=== PATIENT | male | born 1990 | race American Indian/Alaskan Native ===

== ENCOUNTER 2017-08-17 21:42 | Emergency (ER) | payer BC, MEDICAID, OTHER ==
[2017-08-17 21:51] VITALS: BMI 27.1
--- NOTE | 2017-08-17 22:34 | ED PDOC ---
Arrival/HPI - General Time Seen by Provider: 08/17/17 22:10 Historian: Patient - History of Present Illness Narrative History of Present Illness (Text): 08/17/17 22:34 Ren Louis is a 26 year old male, whose past medical history includes HIV ( undetectable viral load) on HAART medication and cholecystectomy, who presents to the Emergency department complaining of abdominal pain. Patient states he has been experiencing upper abdominal pain radiating to his back with associated decreased appetite for the past few days. Patient denies any fever, chills, chest pain, shortness of breath, diarrhea, urinary symptoms, neck pain, headache, dizziness, or any other complaints. Time/Duration: Other (few days) Symptom Onset: Gradual Symptom Course: Unchanged Activities at Onset: Light Context: Home Past Medical History - Provider Review Nursing Documentation Reviewed: Yes - Infectious Disease Hx of Infectious Diseases: None - Tetanus Immunization Tetanus Immunization: Up to Date - Pulmonary Hx Asthma: Yes - Hematological/Oncological Hx HIV: Yes (Diagnosed in 2011) - Psychiatric Hx Substance Use: Yes - Surgical History Hx Cholecystectomy: Yes - Anesthesia Hx Anesthesia: Yes Hx Anesthesia Reactions: No Hx Malignant Hyperthermia: No - Suicidal Assessment Feels Threatened In Home Enviroment: No Family/Social History - Physician Review Nursing Documentation Reviewed: Yes Family/Social History: Unknown Family HX Smoking Status: Former Smoker Hx Alcohol Use: Yes Hx Substance Use: Yes Substance used: marijuana Allergies/Home Meds Allergies/Adverse Reactions: Allergies Penicillins Allergy (Verified 01/25/17 10:35) ANAPHYLAXIS Review of Systems - Physician Review All systems were reviewed & negative as marked: Yes - Review of Systems Constitutional: Normal. absent: Fevers Eyes: Normal ENT: Normal Respiratory: Normal. absent: SOB, Cough Cardiovascular: Normal. absent: Chest Pain Gastrointestinal: Abdominal Pain, Appetite Changes (+decreased appetite). absent: Diarrhea, Nausea, Vomiting Genitourinary Male: Normal. absent: Dysuria, Frequency, Hematuria, Urinary Output Changes Skin: Normal. absent: Rash Neurological: Normal. absent: Headache, Dizziness Endocrine: Normal Hemo/Lymphatic: Normal Psychiatric: Normal Physical Exam Vital Signs Reviewed: Yes Vital Signs Temp Pulse Resp BP Pulse Ox 08/18/17 03:02 98.1 F 87 18 99 08/17/17 22:37 98.4 F 83 18 151/92 H 99 Temperature: Afebrile Blood Pressure: Normal Pulse: Regular Respiratory Rate: Normal Appearance: Positive for: Well-Appearing, Non-Toxic, Comfortable Pain Distress: None Mental Status: Positive for: Alert and Oriented X 3 - Systems Exam Head: Present: Atraumatic, Normocephalic Pupils: Present: PERRL Extroacular Muscles: Present: EOMI Conjunctiva: Present: Normal Mouth: Present: Moist Mucous Membranes Neck: Present: Normal Range of Motion Respiratory/Chest: Present: Clear to Auscultation, Good Air Exchange. No: Respiratory Distress, Accessory Muscle Use Cardiovascular: Present: Regular Rate and Rhythm, Normal S1, S2. No: Murmurs Abdomen: Present: Tenderness (Mild LUQ tenderness), Normal Bowel Sounds. No: Distention, Peritoneal Signs Back: Present: Normal Inspection Upper Extremity: Present: Normal Inspection. No: Cyanosis, Edema Lower Extremity: Present: Normal Inspection. No: Edema Neurological: Present: GCS=15, CN II-XII Intact, Speech Normal Skin: Present: Warm, Dry, Normal Color. No: Rashes Psychiatric: Present: Alert, Oriented x 3, Normal Insight, Normal Concentration Medical Decision Making ED Course and Treatment: 08/17/17 22:34 Impression: 26 year old male complaining of upper abdominal pain radiating to his back for past few days with decreased appetite. Differential Diagnosis included but are not limited to: pancreatitis vs choledocholithiasis vs. gastritis vs. abdominal pain Plan: -- CT Abdomen and Pelvis with IV contrast -- EKG -- Labs, cardiac enzymes, amylase, lipase, blood cultures -- Urinalysis, urine cultures -- IV fluids -- Zofran -- Protonix -- Reassess and disposition Prior Visits: Notes and results from previous visits were reviewed. On 03/25/2017, pt was seen in the Emergency department for left hand/forearm numbness and tinlging. Pt was d/c home. Progress Notes: reviewed EKG, NSR at [address]-segment elevations or depressions, no T-wave inversions, normal intervals. 08/18/17 02:04 Reviewed radiology, CT Abdomen and Pelvis shows: 1. Probable mild enteritis. Clinical correlation is needed. 2. Incidental/non-acute findings are described above. Re-evaluation Time: 03:00 Reassessment Condition: Re-examined, Improved - Lab Interpretations Microbiology Results: Microbiology Results 08/17/17 23:18 Blood-Venous Blood Culture - Preliminary NO GROWTH AFTER 48 HOURS 08/17/17 23:00 Blood-Venous Blood Culture - Preliminary NO GROWTH AFTER 48 HOURS 08/18/17 02:10 Urine,Clean Catch Urine Culture - Final No Growth (<1,000 CFU/ML) Lab Results: 08/17/17 22:40 08/17/17 23:10 Lab Results 08/18/17 02:10: Urine Color Yellow, Urine Appearance Clear, Urine pH 6.5, Ur Specific Roe 1.010, Urine Protein Trace H, Urine Glucose (UA) Negative, Urine Ketones Negative, Urine Blood Negative, Urine Nitrate Negative, Urine Bilirubin Negative, Urine Urobilinogen 0.2, Ur Leukocyte Esterase Negative, Urine RBC 0 - 2, Urine WBC 0 - 2, Ur Epithelial Cells 0 - 2 08/17/17 23:10: Sodium 142, Potassium 3.7, Chloride 104, Carbon Dioxide 27, Anion Gap 15, BUN 7, Creatinine 0.9, Est GFR ( Amer) > 60, Est GFR (Non- Af Amer) > 60, Random Glucose 88, Calcium 9.0, Total Bilirubin 0.6, AST 27, ALT 25, Alkaline Phosphatase 72, Lactate Dehydrogenase 447, Total Creatine Kinase 246 H, CK-MB (CK-2) 1.2, CK-MB (CK-2) % Cancelled, Troponin I < 0.01, Total Protein 7.1, Albumin 4.2, Globulin 2.9, Albumin/Globulin Ratio 1.4, Amylase 84, Lipase 33 08/17/17 23:10: PT 11.0, INR 1.02, APTT 29.5 08/17/17 22:40: WBC 6.5 D, RBC 4.90, Hgb 13.8 L, Hct 39.1 L, MCV 79.8 L, MCH 28.2, MCHC 35.3, RDW 13.1, Plt Count 202, MPV 10.8, Gran % 69.9 H, Lymph % (Auto ) 18.7 L, [place] % (Auto) 9.4 H, Eos % (Auto) 1.7, Baso % (Auto) 0.3, Gran # 4.52 , Lymph # 1.2, [place] # 0.6, Eos # 0.1, Baso # 0.02 I have reviewed the lab results: Yes - RAD Interpretation Narrative RAD Interpretations (Text): CT Abdomen and Pelvis shows: Lower thorax: No acute findings. ABDOMEN: Liver: Few too small to characterize lesions. Gallbladder and bile ducts: Cholecystectomy. No ductal dilation. Pancreas: No ductal dilation. No mass. Spleen: No splenomegaly. Adrenals: No mass. Kidneys and ureters: No mass. No hydronephrosis. Stomach and bowel: Underdistention of stomach, limiting evaluation. Apparent mild mural thickening of several duodenal, jejunal loops. No associated inflammatory stranding. No obstruction. Appendix: No definite findings to suggest acute appendicitis. PELVIS: Bladder: Unremarkable. Reproductive: Unremarkable as visualized. ABDOMEN and PELVIS: Intraperitoneal space: Trace free fluid within pelvis. No free air. Bones/joints: No acute fracture. Soft tissues: Unremarkable. Vasculature: Unremarkable. No aneurysm. Lymph nodes: No pathologically enlarged lymph nodes. IMPRESSION: 1. Probable mild enteritis. Clinical correlation is needed. 2. Incidental/non-acute findings are described above. Radiology Orders: 08/17/17 22:42 ABD & PELVIS IV CONTRAST ONLY [CT] [facility] Medical Assistant: Radiologist - EKG Interpretation Interpreted by ED Physician: Yes Type: 12 lead EKG - Medication Orders Current Medication Orders: Discontinued Medications Pantoprazole Sodium 40 mg/ (Sodium Chloride) 100 mls @ 400 mls/hr IV STAT STA Stop: 08/17/17 22:55 Last Admin: 08/17/17 23:50 Dose: 400 mls/hr eMAR Start Stop Document 08/17/17 23:50 EQ (Rec: 08/17/17 23:50 EQ [id number]) Intravenous Solution Start Date 08/17/17 Start Time 23:50 Sodium Chloride (Sodium Chloride 0.9%) 1,000 mls @ 100 mls/hr IV .Q10H STA Stop: 08/18/17 08:40 Last Admin: 08/17/17 23:50 Dose: 100 mls/hr eMAR Start Stop Document 08/17/17 23:50 EQ (Rec: 08/17/17 23:50 EQ [id number]) Intravenous Solution Start Date 08/17/17 Start Time 23:50 Metronidazole (Flagyl) 500 mg PO STAT STA PRN Reason: Protocol Stop: 08/18/17 02:35 Last Admin: 08/18/17 02:59 Dose: 500 mg Ondansetron HCl (Zofran Inj) 4 mg IVP STAT STA Stop: 08/17/17 22:42 Last Admin: 08/17/17 23:50 Dose: 4 mg IVP Administration Document 08/17/17 23:50 EQ (Rec: 08/17/17 23:50 EQ [id number]) Charges for Administration # of IVP Administrations 1 - Scribe Statement The provider has reviewed the documentation as recorded by the Alessiaiblasha Thorpe Provider Scribe Attestation: All medical record entries made by the Scribe were at my direction and personally dictated by me. I have reviewed the chart and agree that the record accurately reflects my personal performance of the history, physical exam, medical decision making, and the department course for this patient. I have also personally directed, reviewed, and agree with the discharge instructions and disposition.' Disposition/Present on Arrival - Present on Arrival Any Indicators Present on Arrival: No History of DVT/PE: No History of Uncontrolled Diabetes: No Urinary Catheter: No History Surgical Site Infection Following: None - Disposition Have Diagnosis and Disposition been Completed?: Yes Diagnosis: Gastroenteritis Disposition: HOME/ ROUTINE Disposition Time: 03:05 Condition: GOOD Discharge Instructions (ExitCare): Gastroenteritis (ED) Prescriptions: Metronidazole [Flagyl] 500 mg PO TID #15 tab Forms: [x+1] (Faroese)
[2017-08-17 22:37] VITALS: BP 151/92; RESP 18; O2SAT 99
[2017-08-17] MEDS ORDERED: Pantoprazole 40 MG in Sodium Chloride 0.9% 100 ML IV STA (22:41)
[2017-08-17] MEDS ORDERED: Sodium Chloride 0.9% 1,000 ML IV STA (22:41)
[2017-08-17 23:43] LABS: BASO # 0.02 K/mm3 (0.0-2.0); BASO % 0.3 % (0.0-3.0); EOS # 0.1 (0.0-0.7); EOS % 1.7 % (1.5-5.0); GRAN # 4.52 (1.4-6.5); GRAN % 69.9 % (50.0-68.0); HEMATOCRIT 39.1 % (42.0-52.0); LYMPH # 1.2 (1.2-3.4); LYMPH % 18.7 % (22.0-35.0); MEAN CELL VOLUME 79.8 fl (80.0-105.0); MEAN CORPUSCULAR HEMOGLOBIN 28.2 pg (25.0-35.0); MEAN CORPUSCULAR HGB CONC 35.3 g/dl (31.0-37.0); MEAN PLATELET VOLUME 10.8 fl (7.0-11.0); MONO # 0.6 (0.1-0.6); MONO % 9.4 % (1.0-6.0); RED CELL DISTRIBUTION WIDTH 13.1 % (11.5-14.5); WHITE BLOOD COUNT 6.5 10^3/ul (4.5-11.0)
[2017-08-17 23:52] LABS: INR 1.02 (0.93-1.08); PARTIAL THROMBOPLASTIN TIME 29.5 Seconds (23.7-30.8)
[2017-08-18] LABS: ALB/GLOB RATIO 1.4 (1.1-1.8); ALKALINE PHOSPHATASE 72 U/L (38-126); ALT/SGPT 25 U/L (7-56); AMYLASE 84 U/L (35-125); AST/SGOT 27 U/L (17-59); BILIRUBIN,TOTAL 0.6 mg/dL (0.2-1.3); BLOOD UREA NITROGEN 7 mg/dL (7-21); CARBON DIOXIDE 27 mmol/L (21-33); CHLORIDE 104 mmol/L (98-107); GFR AFRICAN-AMERICAN > 60; GLUCOSE,RANDOM 88 mg/dL (70-110); LIPASE 33 U/L (23-300); POTASSIUM 3.7 mmol/L (3.6-5.0); SODIUM 142 mmol/L (132-148); TOTAL PROTEIN 7.1 g/dL (5.8-8.3)
[2017-08-18] MEDS ORDERED: Iohexol 350 MG/100 ML VIAL ONE (00:21)
[2017-08-18 00:30] LABS: TROPONIN I < 0.01 ng/mL
--- NOTE | 2017-08-18 01:47 | CT ---
EXAM: CT Abdomen and Pelvis With Intravenous Contrast CLINICAL HISTORY: 26 years old, male; Pain; Abdominal pain; Additional info: Abd pain TECHNIQUE: Axial computed tomography images of the abdomen and pelvis with intravenous contrast. All CT scans at this facility use one or more dose reduction techniques, viz.: automated exposure control; ma/kV adjustment per patient size (including targeted exams where dose is matched to indication; i.e. head); or iterative reconstruction technique. Coronal and sagittal reformatted images were created and reviewed. CONTRAST: 96 mL of OMNI 350 administered intravenously. COMPARISON: CT - ABD PELVIS IV CONTRAST ONLY 10/02/2016 7:45:50 PM FINDINGS: Lower thorax: No acute findings. ABDOMEN: Liver: Few too small to characterize lesions. Gallbladder and bile ducts: Cholecystectomy. No ductal dilation. Pancreas: No ductal dilation. No mass. Spleen: No splenomegaly. Adrenals: No mass. Kidneys and ureters: No mass. No hydronephrosis. Stomach and bowel: Underdistention of stomach, limiting evaluation. Apparent mild mural thickening of several duodenal, jejunal loops. No associated inflammatory stranding. No obstruction. Appendix: No definite findings to suggest acute appendicitis. PELVIS: Bladder: Unremarkable. Reproductive: Unremarkable as visualized. ABDOMEN and PELVIS: Intraperitoneal space: Trace free fluid within pelvis. No free air. Bones/joints: No acute fracture. Soft tissues: Unremarkable. Vasculature: Unremarkable. No aneurysm. Lymph nodes: No pathologically enlarged lymph nodes. IMPRESSION: 1. Probable mild enteritis. Clinical correlation is needed. 2. Incidental/non-acute findings are described above.
[2017-08-18 02:30] LABS: PH,URINE 6.5 (4.7-8.0); URINE BILIRUBIN NEGATIVE (NEGATIVE); URINE BLOOD NEGATIVE (NEGATIVE); URINE GLUCOSE (UA) NEGATIVE (NEGATIVE); URINE KETONE NEGATIVE (NEGATIVE); URINE LEUKOCYTE ESTERASE NEGATIVE Leu/uL (NEGATIVE); URINE PROTEIN TRACE mg/dL (<30 mg/dL); URINE UROBILINOGEN 0.2 E.U./dL (<1 E.U./dL)
[2017-08-18 02:50] LABS: URINE APPEARANCE CLEAR (CLEAR); URINE COLOR YELLOW (YELLOW)
[2017-08-18 02:54] LABS: URINE EPITHELIAL CELLS 0 - 2 /hpf (0-5); URINE RBC 0 - 2 /hpf (0-2); URINE WBC 0 - 2 /hpf (0-6)
[2017-08-18 03:02] VITALS: PULSE 87; TEMP 98.1
--- NOTE | 2017-08-18 09:07 | CARD ---
APPROVED REPORT EKG Measurement Heart [id number] <Conclusion> Normal sinus rhythm Normal ECG No change
== END 2017-08-18 03:03 | disposition home or self-care (01) ==
LOC: ED 21:42
DX: K52.9 Noninfective gastroenteritis and colitis, unspecified (principal); Z90.49 Acquired absence of other specified parts of digestive tract
CPT/HCPCS: 74177; 80053; 81001; 82150; 82550; 82553; 83615; 83690; 84484; 85025; 85610; 85730; 87040; 87086; 93005; 96374; 99283; C9113; J2405; J7040; Q9967

== ENCOUNTER 2017-10-10 21:00 | Emergency (ER) | payer OTHER ==
[2017-10-10 21:00] VITALS: BMI 27.1
[2017-10-10 21:08] VITALS: TEMP 97.5
--- NOTE | 2017-10-10 21:25 | ED PDOC ---
Arrival/HPI <Humza Sosa - Last Filed: 10/10/17 23:17> - General Historian: Patient <Andrea Reardon - Last Filed: 10/10/17 23:33> - General Chief Complaint: Shortness Of Breath Time Seen by Provider: 10/10/17 21:17 - History of Present Illness Narrative History of Present Illness (Text): 10/10/17 21:17 27 year old male, pmh including HIV/asthma, admits drug abuse, penicillin allergy, complaining of shortness of breath for the past 2-3 days. Pt. stated that his chest feels tight, no coughing but feels the air is difficulty to get in and out, no night sweat, last HIV viral load was undetectable about 8 months ago but doesn't know his CD4 counts. Pt. has no recent traveling, no palpitation, no rash, no change in vision, admits smoking marijuana and crystalmeth no other medical or psychological complaints, no other medical or psychological complaints. (Andrea Reardon) Past Medical History - Provider Review Nursing Documentation Reviewed: Yes - Infectious Disease Hx of Infectious Diseases: None - Tetanus Immunization Tetanus Immunization: Up to Date - Reproductive Currently : Yes - Pulmonary Hx Asthma: Yes - Hematological/Oncological Hx HIV: Yes (Diagnosed in 2011) - Psychiatric Hx Depression: No Hx Substance Use: Yes - Surgical History Hx Cholecystectomy: Yes - Anesthesia Hx Anesthesia: Yes Hx Anesthesia Reactions: No Hx Malignant Hyperthermia: No - Suicidal Assessment Feels Threatened In Home Enviroment: No <Andrea Reardon - Last Filed: 10/10/17 23:33> Family/Social History - Physician Review Nursing Documentation Reviewed: Yes Family/Social History: Unknown Family HX Smoking Status: Former Smoker Hx Alcohol Use: Yes Hx Substance Use: Yes Substance used: marijuana <Andrea Reardon - Last Filed: 10/10/17 23:33> Allergies/Home Meds <Humza Sosa - Last Filed: 10/10/17 23:17> <Andrea Reardon - Last Filed: 10/10/17 23:33> Allergies/Adverse Reactions: Allergies Penicillins Allergy (Verified 01/25/17 10:35) ANAPHYLAXIS Review of Systems - Review of Systems Constitutional: absent: Fatigue, Fevers Eyes: absent: Vision Changes ENT: absent: Hearing Changes Respiratory: SOB. absent: Cough, Sputum, Wheezing Cardiovascular: absent: Chest Pain Gastrointestinal: absent: Abdominal Pain, Nausea, Vomiting Musculoskeletal: absent: Arthralgias, Back Pain, Myalgias Skin: absent: Rash, Pruritis Psychiatric: absent: Anxiety, Depression, Suicidal Ideation <Andrea Reardon - Last Filed: 10/10/17 23:33> Physical Exam Vital Signs Reviewed: Yes Temperature: Afebrile Blood Pressure: Hypertensive Pulse: Tachycardic Respiratory Rate: Normal Appearance: Positive for: Well-Appearing, Non-Toxic, Comfortable Pain Distress: None Mental Status: Positive for: Alert and Oriented X 3 - Systems Exam Head: Present: Atraumatic, Normocephalic Pupils: Present: PERRL Extroacular Muscles: Present: EOMI Conjunctiva: Present: Normal Ears: Present: NORMAL TM, Normal Canal. No: Erythema Mouth: Present: Moist Mucous Membranes Neck: Present: Normal Range of Motion Respiratory/Chest: Present: Clear to Auscultation, Good Air Exchange, Decreased Breath Sounds (bilaterally). No: Respiratory Distress, Accessory Muscle Use, Wheezes, Rales, Retracting, Rhonchi, Tachypneic, Tender to Palpation Cardiovascular: Present: Regular Rate and Rhythm, Normal S1, S2. No: Murmurs Abdomen: Present: Normal Bowel Sounds. No: Tenderness, Distention, Peritoneal Signs, Rebound, Guarding Back: Present: Normal Inspection Upper Extremity: Present: Normal Inspection. No: Cyanosis, Edema Lower Extremity: Present: Normal Inspection. No: Edema Neurological: Present: GCS=15, CN II-XII Intact, Speech Normal Skin: Present: Warm, Dry, Normal Color. No: Rashes Psychiatric: Present: Alert, Oriented x 3, Normal Insight, Normal Concentration <Andrea Reardon - Last Filed: 10/10/17 23:33> Vital Signs Temp Pulse Resp BP Pulse Ox 10/10/17 21:00 97.5 F L 102 H 18 154/90 H 96 Medical Decision Making <Humza Sosa - Last Filed: 10/10/17 23:17> - Lab Interpretations I have reviewed the lab results: Yes Interpretation: No clinic. lab abnormalty <Andrea Reardon - Last Filed: 10/10/17 23:33> ED Course and Treatment: 10/10/17 21:30 -labs/ua/uds -ekg -cxr -IVF/duonebx2 -Observe and reassess 10/10/17 23:28 -Pt. feels better after the duoneb treatment. -Labs are non-significant, negative troponin/d-dimer -EKG: SR @ 80 BPM, no ST elevation or depression, no T wave inversion, mild PAC noted. -Case discussed with Dr. Sosa, he agreed to discharge the patient home with albuterol -Discharge home with albuterol MDI, prednisone, stay hydrated, follow up with your own pmd and infectious disease/electronic service technician within 2 days, return to the ER for any new or worsening signs or symptoms. (Andrea Reardon) - Lab Interpretations Lab Results: 10/10/17 21:50 10/10/17 21:50 Lab Results 10/10/17 21:50: WBC 6.1, RBC 5.15, Hgb 14.3, Hct 41.2 L, MCV 80.0, MCH 27.8, MCHC 34.7, RDW 13.3, Plt Count 217, MPV 10.2, Gran % 66.0, Lymph % (Auto) 24.5, [place] % (Auto) 7.0 H, Eos % (Auto) 2.0, Baso % (Auto) 0.5, Gran # 4.04, Lymph # 1.5, [place] # 0.4, Eos # 0.1, Baso # 0.03 10/10/17 21:50: Sodium 139, Potassium 4.4, Chloride 103, Carbon Dioxide 28, Anion Gap 12, BUN 12, Creatinine 1.1, Est GFR ( Amer) > 60, Est GFR (Non- Af Amer) > 60, Random Glucose 93, Calcium 9.3, Magnesium 2.0, Total Bilirubin 0.9, AST 23, ALT 35, Alkaline Phosphatase 64, Lactate Dehydrogenase 465, Total Creatine Kinase 122, Troponin I < 0.01, NT-Pro-B Natriuret Pep < 11.1, Total Protein 8.0, Albumin 4.5, Globulin 3.5, Albumin/Globulin Ratio 1.3 10/10/17 21:50: D-Dimer, Quantitative < 200 - RAD Interpretation Radiology Orders: 10/10/17 21:25 CHEST PORTABLE [RAD] Stat - Medication Orders Current Medication Orders: Discontinued Medications Albuterol/Ipratropium (Duoneb 3 Mg/0.5 Mg (3 Ml) Ud) 6 ml IH STAT STA Stop: 10/10/17 21:27 Last Admin: 10/10/17 22:00 Dose: 6 ml Sodium Chloride (Sodium Chloride 0.9%) 1,000 mls @ 999 mls/hr IV .Q1H1M STA Stop: 10/10/17 22:26 Last Admin: 10/10/17 22:00 Dose: 999 mls/hr eMAR Start Stop Document 10/10/17 22:00 SC (Rec: 10/10/17 22:00 SC [facility] [id number]) Intravenous Solution Start Date 10/10/17 Start Time 22:00 End Date 10/10/17 End time 23:00 Total Infusion Time 60 - PA / ECHOCARDIOGRAPH TECHNICIAN / Resident Statement JESSIAC has reviewed & agrees with the documentation as recorded. <Humza Sosa - Last Filed: 10/10/17 23:17> - PA / ECHOCARDIOGRAPH TECHNICIAN / Resident Statement JESSICA has reviewed & agrees with the documentation as recorded. JESSICA has examined the patient and agrees with the treatment plan. <Andrea Reardon - Last Filed: 10/10/17 23:33> Disposition/Present on Arrival <Humza Sosa - Last Filed: 10/10/17 23:17> - Present on Arrival Any Indicators Present on Arrival: No History of DVT/PE: No History of Uncontrolled Diabetes: No Urinary Catheter: No History of Decub. Ulcer: No History Surgical Site Infection Following: None - Disposition Have Diagnosis and Disposition been Completed?: Yes Disposition Time: 23:31 Patient Plan: Discharge <Andrea Reardon - Last Filed: 10/10/17 23:33> - Disposition Diagnosis: Shortness of breath, Drug abuse Disposition: HOME/ ROUTINE Condition: IMPROVED Additional Instructions: -Discharge home with albuterol MDI, prednisone, stay hydrated, follow up with your own pmd and infectious disease/electronic service technician within 2 days, return to the ER for any new or worsening signs or symptoms. Prescriptions: Albuterol HFA [Ventolin HFA 90 mcg/actuation (8 g)] 2 puff IH [id number] PRN #1 inhaler PRN Reason: Cough Prednisone 50 mg PO DAILY #5 tab Referrals: Елена Worthington, [Primary Care Provider] - Follow up with primary Sylvester Bonilla MD [Staff Provider] - Follow up with primary Sanford Hancock MD [Staff Provider] - Follow up with primary Forms: WORK NOTE
[2017-10-10] MEDS ORDERED: Albuterol-Ipratrop 3 mg / 0.5 (3 ml) UD IH STA (21:26)
[2017-10-10] MEDS ORDERED: Sodium Chloride 0.9% 1,000 ML IV STA (21:26)
[2017-10-10 22:03] LABS: BASO # 0.03 K/mm3 (0.0-2.0); BASO % 0.5 % (0.0-3.0); EOS # 0.1 (0.0-0.7); GRAN # 4.04 (1.4-6.5); HEMATOCRIT 41.2 % (42.0-52.0); LYMPH # 1.5 (1.2-3.4); LYMPH % 24.5 % (22.0-35.0); MEAN CORPUSCULAR HEMOGLOBIN 27.8 pg (25.0-35.0); MEAN CORPUSCULAR HGB CONC 34.7 g/dl (31.0-37.0); MEAN PLATELET VOLUME 10.2 fl (7.0-11.0); MONO # 0.4 (0.1-0.6); RED CELL DISTRIBUTION WIDTH 13.3 % (11.5-14.5); WHITE BLOOD COUNT 6.1 10^3/ul (4.5-11.0)
[2017-10-10 22:20] LABS: ALB/GLOB RATIO 1.3 (1.1-1.8); ALKALINE PHOSPHATASE 64 U/L (38-126); ALT/SGPT 35 U/L (7-56); AST/SGOT 23 U/L (17-59); BILIRUBIN,TOTAL 0.9 mg/dL (0.2-1.3); BLOOD UREA NITROGEN 12 mg/dL (7-21); CALCIUM 9.3 mg/dL (8.4-10.5); CARBON DIOXIDE 28 mmol/L (21-33); CHLORIDE 103 mmol/L (98-107); GFR AFRICAN-AMERICAN > 60; GLUCOSE,RANDOM 93 mg/dL (70-110); POTASSIUM 4.4 mmol/L (3.6-5.0); SODIUM 139 mmol/L (132-148)
[2017-10-10 22:32] LABS: TROPONIN I < 0.01 ng/mL
[2017-10-10 23:53] VITALS: BP 136/78; PULSE 78; RESP 16; O2SAT 99
--- NOTE | 2017-10-11 09:19 | RAD ---
HISTORY: medical clearance COMPARISON: Portable chest 01/25/2017. FINDINGS: LUNGS: No acute infiltrate bilaterally. Diminished inspiratory volume noted. PLEURA: No significant pleural effusion identified, no pneumothorax apparent. CARDIOVASCULAR: Normal. OSSEOUS STRUCTURES: No significant abnormalities. VISUALIZED UPPER ABDOMEN: Normal. OTHER FINDINGS: None. IMPRESSION: No interval acute infiltrate or cardiomegaly appreciated.Diminished inspiratory volume.
--- NOTE | 2017-10-11 10:25 | CARD ---
APPROVED REPORT EKG Measurement Heart [id number] <Conclusion> Sinus rhythm Normal ECG No change
== END 2017-10-10 23:56 | disposition home or self-care (01) ==
LOC: ED 21:00
DX: R06.02 Shortness of breath (principal); F19.10 Other psychoactive substance abuse, uncomplicated
CPT/HCPCS: 71010; 80053; 82550; 83615; 83735; 83880; 84484; 85025; 85378; 93005; 96360; 99284; J7040

== ENCOUNTER 2017-12-23 18:03 | Emergency (ER) | payer OTHER ==
[2017-12-23 18:03] VITALS: BMI 27.1
--- NOTE | 2017-12-23 19:20 | ED PDOC ---
Arrival/HPI - General Chief Complaint: Flu-like Symptoms Time Seen by Provider: 12/23/17 19:16 Historian: Patient - History of Present Illness Narrative History of Present Illness (Text): 12/23/17 19:18 This 27 yo male with pmh HIV, presents to this ED c/o myalgias, cough, chills, fever x 1 day. Patient stated his CD4 was @ 700's, but he was told his viral load was " a little high" last week.. Patient denies hemoptysis, cp, skin rash , recent travel, sick contact, dizziness, or abnormal gait. Time/Duration: Other (see hpi) Context: Home Past Medical History - Provider Review Nursing Documentation Reviewed: Yes - Infectious Disease Hx of Infectious Diseases: None - Tetanus Immunization Tetanus Immunization: Up to Date - Cardiac Hx Cardiac Disorders: No - Pulmonary Hx Respiratory Disorders: Yes Hx Asthma: Yes - Neurological Hx Neurological Disorder: No - HEENT Hx HEENT Disorder: No - Renal Hx Renal Disorder: No - Endocrine/Metabolic Hx Endocrine Disorders: No - Hematological/Oncological Hx Blood Disorders: Yes - Integumentary Hx Dermatological Disorder: No - Musculoskeletal/Rheumatological Hx Musculoskeletal Disorders: No - Gastrointestinal Hx Gastrointestinal Disorders: No - Genitourinary/Gynecological Hx Genitourinary Disorders: No - Psychiatric Hx Psychophysiologic Disorder: No Hx Depression: No Hx Substance Use: Yes - Surgical History Hx Cholecystectomy: Yes - Anesthesia Hx Anesthesia: Yes Hx Anesthesia Reactions: No Hx Malignant Hyperthermia: No - Suicidal Assessment Feels Threatened In Home Enviroment: No Family/Social History - Physician Review Nursing Documentation Reviewed: Yes Family/Social History: Other (noncontributory) Smoking Status: Light Smoker < 10 Cigarettes Daily Hx Alcohol Use: Yes Hx Substance Use: Yes Substance used: marijuana Allergies/Home Meds Allergies/Adverse Reactions: Allergies Penicillins Allergy (Verified 12/23/17 18:36) ANAPHYLAXIS Home Medications: Home Meds Medication Instructions Recorded Confirmed Dolutegravir Sodium [Tivicay] 1 tab PO DAILY 12/23/17 12/23/17 Emtricitabine/Tenofov Alafenam 1 each PO DAILY 12/23/17 12/23/17 [Descovy 200-25 mg Tablet] Review of Systems - Review of Systems Constitutional: Other ((+) chills). absent: Fatigue, Weight Change, Fevers Eyes: Normal. absent: Vision Changes ENT: Rhinorrhea. absent: Sore Throat Respiratory: Cough. absent: SOB, Sputum, Wheezing Cardiovascular: Normal. absent: Chest Pain, Palpitations Gastrointestinal: Normal. absent: Abdominal Pain, Nausea, Vomiting Genitourinary Male: Normal. absent: Dysuria, Frequency Musculoskeletal: Normal. absent: Back Pain, Neck Pain, Myalgias Skin: Normal. absent: Rash Neurological: Normal. absent: Headache, Dizziness, Focal Weakness, Gait Changes , Speech Changes, Disequilibrium, Seizure Endocrine: Normal Hemo/Lymphatic: Normal Psychiatric: Normal Physical Exam Vital Signs Temp Pulse Resp BP Pulse Ox 12/23/17 18:31 98.8 F 95 H 18 124/80 95 Temperature: Afebrile Blood Pressure: Normal Pulse: Regular Respiratory Rate: Normal Appearance: Positive for: Well-Appearing, Non-Toxic, Comfortable Pain Distress: None Mental Status: Positive for: Alert and Oriented X 3 - Systems Exam Head: Present: Atraumatic, Normocephalic Pupils: Present: PERRL Extroacular Muscles: Present: EOMI Conjunctiva: Present: Normal Mouth: Present: Moist Mucous Membranes Pharnyx: Present: Normal. No: ERYTHEMA, EXUDATE, TONSILS ENLARGED Neck: Present: Normal Range of Motion. No: Meningeal Signs Respiratory/Chest: Present: Clear to Auscultation, Good Air Exchange. No: Respiratory Distress, Accessory Muscle Use, Wheezes, Retracting, Rhonchi Cardiovascular: Present: Regular Rate and Rhythm, Normal S1, S2. No: Murmurs Abdomen: Present: Normal Bowel Sounds. No: Tenderness, Distention, Peritoneal Signs Back: Present: Normal Inspection Upper Extremity: Present: Normal Inspection, Normal ROM. No: Cyanosis, Edema Lower Extremity: Present: Normal Inspection, Normal ROM. No: Edema Neurological: Present: GCS=15, CN II-XII Intact, Speech Normal, Motor Func Grossly Intact, Normal Sensory Function, Normal Cerebellar Funct, Gait Normal Skin: Present: Warm, Dry, Normal Color. No: Rashes Psychiatric: Present: Alert, Oriented x 3, Normal Insight, Normal Concentration Medical Decision Making ED Course and Treatment: 12/23/17 20:24 Re-evaluation. Patient feels better. Discussed results and plan with patient who expresses understanding. All questions answered and there is agreement with the plan to discharge home with instructions. Patient stable for discharge. Return if symptoms persist or worsen. Re-evaluation Time: 20:24 Reassessment Condition: Re-examined, Improved - Lab Interpretations Lab Results: Lab Results 12/23/17 18:45: Influenza Typ A,B (EIA) Negative for flu a/b I have reviewed the lab results: Yes Interpretation: No clinic. lab abnormalty - RAD Interpretation Narrative RAD Interpretations (Text): 12/23/17 20:25 Chest Radiology Orders: 12/23/17 19:17 CHEST TWO VIEWS (PA/LAT) [RAD] Stat - Medication Orders Current Medication Orders: Discontinued Medications Azithromycin (Zithromax) 500 mg PO STAT STA PRN Reason: Protocol Stop: 12/23/17 19:49 Last Admin: 12/23/17 20:12 Dose: 500 mg Oseltamivir Phosphate (Tamiflu Cap) 75 mg PO STAT STA PRN Reason: Protocol Stop: 12/23/17 19:49 Last Admin: 12/23/17 20:13 Dose: 75 mg Promethazine HCl/Dextromethorphan (Phenergan Dm Syrup) 5 ml PO STAT STA Stop: 12/23/17 19:50 Disposition/Present on Arrival - Present on Arrival Any Indicators Present on Arrival: No History of DVT/PE: No History of Uncontrolled Diabetes: No Urinary Catheter: No History of Decub. Ulcer: No History Surgical Site Infection Following: None - Disposition Have Diagnosis and Disposition been Completed?: Yes Diagnosis: Influenza-like symptoms Disposition: HOME/ ROUTINE Disposition Time: 20:42 Patient Plan: Discharge Patient Problems: Current Active Problems Problem Status Onset Influenza-like symptoms Acute Condition: GOOD Discharge Instructions (ExitCare): Influenza (ED) Additional Instructions: Call private doctor for follow up visit in 1-2 days. Take medication as instructed. Return to emergency if symptoms worsen. Prescriptions: Azithromycin [Z-Jack] 250 mg PO DAILY #4 tab Oseltamivir [Tamiflu] 75 mg PO BID #9 cap Promethazine [Phenergan Syrup] 5 ml PO Q4H PRN #180 ml PRN Reason: Cough And Congestion Referrals: [facility], [Primary Care Provider] - Follow up with primary Forms: [employer] (Hungarian), WORK NOTE
[2017-12-23] MEDS ORDERED: Promethazine DM 6.25 mg-15 mg/5 ml Syrup PO STA (19:49)
[2017-12-23 20:54] VITALS: RESP 16; TEMP 97.8; O2SAT 100
[2017-12-23 20:55] VITALS: BP 138/72; PULSE 78
--- NOTE | 2017-12-24 08:43 | RAD ---
HISTORY: cough COMPARISON: No prior. TECHNIQUE: Chest PA and lateral FINDINGS: LUNGS: No active pulmonary disease. PLEURA: No significant pleural effusion identified. No pneumothorax apparent. CARDIOVASCULAR: Normal. OSSEOUS STRUCTURES: No significant abnormalities. VISUALIZED UPPER ABDOMEN: Normal. OTHER FINDINGS: None. IMPRESSION: No active disease.
== END 2017-12-23 20:54 | disposition home or self-care (01) ==
LOC: ED 18:03
DX: J11.1 Influenza due to unidentified influenza virus with other respiratory manifestations (principal); F17.210 Nicotine dependence, cigarettes, uncomplicated

== ENCOUNTER 2018-10-28 02:49 | Emergency (ER) | payer SELFPAY ==
[2018-10-28 02:58] VITALS: BMI 27.8
[2018-10-28 03:17] VITALS: O2SAT 97
--- NOTE | 2018-10-28 03:34 | ED PDOC ---
Arrival/HPI - General Time Seen by Provider: 10/28/18 02:58 Historian: Patient - History of Present Illness Narrative History of Present Illness (Text): 10/28/18 03:23 28 year old male, whose past medical history includes HIV (undetectable viral load) on HAART medication, cholecystectomy, asthma, presents to the emergency department complaining of chest pain taht started yesterday. . Patient denies any trauma. He admits to smoking marijuana tonight. Denies any cocaine use. The patient denies any fever, chills, shortness of breath, abdominal pain, nausea, vomiting, diarrhea, urinary symptoms, headache, dizziness, or any other complaints. 10/28/18 05:09 Time/Duration: Other (9 hours) Symptom Onset: Gradual Symptom Course: Unchanged Activities at Onset: Light Context: Home Past Medical History - Provider Review Nursing Documentation Reviewed: Yes - Past History Past History: No Previous - Infectious Disease Hx of Infectious Diseases: None - Tetanus Immunization Tetanus Immunization: Up to Date - Cardiac Hx Cardiac Disorders: No - Pulmonary Hx Respiratory Disorders: Yes Hx Asthma: Yes - Neurological Hx Neurological Disorder: No - HEENT Hx HEENT Disorder: No - Renal Hx Renal Disorder: No - Endocrine/Metabolic Hx Endocrine Disorders: No - Hematological/Oncological Hx Blood Disorders: Yes - Integumentary Hx Dermatological Disorder: No - Musculoskeletal/Rheumatological Hx Musculoskeletal Disorders: No - Gastrointestinal Hx Gastrointestinal Disorders: No - Genitourinary/Gynecological Hx Genitourinary Disorders: No - Psychiatric Hx Psychophysiologic Disorder: No Hx Depression: No Hx Substance Use: Yes - Surgical History Hx Cholecystectomy: Yes - Anesthesia Hx Anesthesia: Yes Hx Anesthesia Reactions: No Hx Malignant Hyperthermia: No - Suicidal Assessment Feels Threatened In Home Enviroment: No Family/Social History - Physician Review Nursing Documentation Reviewed: Yes Family/Social History: No Known Family HX Smoking Status: Light Smoker < 10 Cigarettes Daily Hx Alcohol Use: Yes Hx Substance Use: Yes Substance used: marijuana Hx Substance Use Treatment: No Allergies/Home Meds Allergies/Adverse Reactions: Allergies Penicillins Allergy (Verified 12/24/17 07:32) ANAPHYLAXIS Home Medications: Home Meds Medication Instructions Recorded Confirmed Dolutegravir Sodium [Tivicay] 1 tab PO DAILY 12/23/17 12/24/17 Emtricitabine/Tenofov Alafenam 1 each PO DAILY 12/23/17 12/24/17 [Descovy 200-25 mg Tablet] Review of Systems - Physician Review All systems were reviewed & negative as marked: Yes - Review of Systems Constitutional: absent: Fevers, Other (Chills) Respiratory: absent: SOB Cardiovascular: Chest Pain (radiates to back and neck) Gastrointestinal: absent: Abdominal Pain, Diarrhea, Nausea, Vomiting Genitourinary Male: absent: Dysuria, Frequency, Hematuria Neurological: absent: Headache, Dizziness Physical Exam Vital Signs Reviewed: Yes Vital Signs Pulse Resp BP Pulse Ox 10/28/18 03:16 71 20 149/86 97 Temperature: Afebrile Blood Pressure: Normal Pulse: Regular Respiratory Rate: Normal Appearance: Positive for: Well-Appearing, Non-Toxic, Comfortable Pain Distress: None Mental Status: Positive for: Alert and Oriented X 3 - Systems Exam Head: Present: Atraumatic, Normocephalic Pupils: Present: PERRL Extroacular Muscles: Present: EOMI Conjunctiva: Present: Normal Mouth: Present: Moist Mucous Membranes Neck: Present: Normal Range of Motion Respiratory/Chest: Present: Clear to Auscultation, Good Air Exchange. No: Respiratory Distress, Accessory Muscle Use Cardiovascular: Present: Regular Rate and Rhythm, Normal S1, S2. No: Murmurs Abdomen: No: Tenderness, Distention, Peritoneal Signs Back: Present: Normal Inspection Upper Extremity: Present: Normal Inspection. No: Cyanosis, Edema Lower Extremity: Present: Normal Inspection. No: Edema Neurological: Present: GCS=15, CN II-XII Intact, Speech Normal Skin: Present: Warm, Dry, Normal Color. No: Rashes Psychiatric: Present: Alert, Oriented x 3, Normal Insight, Normal Concentration Medical Decision Making ED Course and Treatment: 10/28/18 03:23 Impression: 18 year old male presents complaining of chest tightness that radiates to the back and neck that began 9 hours ago. PERC Negative Plan: -- CXR -- Reassess and disposition Prior Visits: Notes and results from previous visits were reviewed. Progress Notes: EKG shows NSR at [address]/T wave change. Interpreted by me 10/28/18 04:03 atypcail cp, no cardiac risk factor. cxr neg. pt comfortalbe. no cocaine use. perc neg. - RAD Interpretation Radiology Orders: 10/28/18 03:22 CXR [CHEST TWO VIEWS (PA/LAT)] [RAD] Stat - Scribe Statement The provider has reviewed the documentation as recorded by the Scribe Erasmo Matias Provider Scribe Attestation: All medical record entries made by the Scribe were at my direction and personally dictated by me. I have reviewed the chart and agree that the record accurately reflects my personal performance of the history, physical exam, medical decision making, and the department course for this patient. I have also personally directed, reviewed, and agree with the discharge instructions and disposition. Disposition/Present on Arrival - Present on Arrival Any Indicators Present on Arrival: No History of DVT/PE: No History of Uncontrolled Diabetes: No Urinary Catheter: No History Surgical Site Infection Following: None - Disposition Have Diagnosis and Disposition been Completed?: Yes Diagnosis: Chest pain Disposition: HOME/ ROUTINE Disposition Time: 04:04 Condition: STABLE Discharge Instructions (ExitCare): Chest Pain (ED) Referrals: [facility] [Outside] - Follow up with primary [facility] at [facility] [place] [Outside] - Follow up with primary Brandon Iniguez MD [Staff Provider] - Follow up with primary Forms: [employer] (Ecuadorean)
[2018-10-28 05:00] VITALS: BP 140/72; PULSE 68; RESP 18; TEMP 97.8
--- NOTE | 2018-10-28 08:16 | RAD ---
Date of service: 10/28/2018 HISTORY: cp COMPARISON: 12/23/2017 TECHNIQUE: Chest PA and lateral FINDINGS: LUNGS: No active pulmonary disease. PLEURA: No significant pleural effusion identified. No pneumothorax apparent. CARDIOVASCULAR: No aortic atherosclerotic calcification present. Normal cardiac size. No pulmonary vascular congestion. OSSEOUS STRUCTURES: No significant abnormalities. VISUALIZED UPPER ABDOMEN: Normal. OTHER FINDINGS: None. IMPRESSION: No active disease.
--- NOTE | 2018-10-28 09:50 | CARD ---
APPROVED REPORT Date of service: 10/28/2018 EKG Measurement Heart [id number] CO [id number] <Conclusion> Normal sinus rhythm Normal ECG
== END 2018-10-28 04:20 | disposition home or self-care (01) ==
LOC: ED 02:49
DX: R07.9 Chest pain, unspecified (principal); J45.909 Unspecified asthma, uncomplicated; F17.210 Nicotine dependence, cigarettes, uncomplicated; F12.90 Cannabis use, unspecified, uncomplicated

== ENCOUNTER 2019-02-05 21:54 | Observation (INO) | payer MEDICAID, OTHER ==
[2019-02-05] MEDS ORDERED: Oxycodone/Acetaminophen 5/325 mg Tab PO STA (22:31)
--- NOTE | 2019-02-05 23:07 | CP.PCM.CON ---
History of Present Illness - History of Present Illness History of Present Illness: General Surgery consult for Dr. Rasheed Patient is a 28 M PMH HIV (moderate medication compliance), HPV w/ anal lesion removal (2014), and asthma who presents with a tender area on his right gluteal fold. Patient states that the nodule began approximately 2 days ago becoming progressively more painful and enlarged. He states his last normal BM was yesterday and he has been unable to sit today d/t pain. Patient otherwise denies COLVIN, f/c, n/v, CP, SOB, abdominal pain, stool changes, dysuria, and scrotal or penile pain. Surgery was consulted for evaluation of possible abscess and need for drainage. CT pelvis is pending. PMH: HIV (moderately compliant on HAART therapy, HPV (anal lesions removed 2014), asthma PSH: removal of anal HPV lesions, Cholecystectomy (2004), colonoscopy and EGD 2014 (gastritis, otherwise normal) Family hx: noncontributory Social: Smoker 5 cigarettes/day, marijuana use daily, last illicit drug use 1 month ago unsure of type Meds: pt unsure of HAART regimen PMD: none Review of Systems - Review of Systems All systems: reviewed and no additional remarkable complaints except (as per HPI) Past Patient History - Infectious Disease Hx of Infectious Diseases: None - Tetanus Immunizations Tetanus Immunization: Up to Date - Past Social History Smoking Status: Light Smoker < 10 Cigarettes Daily - CARDIAC Hx Cardiac Disorders: No - PULMONARY Hx Respiratory Disorders: Yes Hx Asthma: Yes - NEUROLOGICAL Hx Neurological Disorder: No - HEENT Hx HEENT Problems: No - RENAL Hx Chronic Kidney Disease: No - ENDOCRINE/METABOLIC Hx Endocrine Disorders: No - HEMATOLOGICAL/ONCOLOGICAL Hx Blood Disorders: Yes - INTEGUMENTARY Hx Dermatological Problems: No - MUSCULOSKELETAL/RHEUMATOLOGICAL Hx Musculoskeletal Disorders: No - GASTROINTESTINAL Hx Gastrointestinal Disorders: No - GENITOURINARY/GYNECOLOGICAL Hx Genitourinary Disorders: No - PSYCHIATRIC Hx Psychophysiologic Disorder: No Hx Depression: No Hx Substance Use: Yes - SURGICAL HISTORY Hx Cholecystectomy: Yes - ANESTHESIA Hx Anesthesia: Yes Hx Anesthesia Reactions: No Hx Malignant Hyperthermia: No Meds Allergies/Adverse Reactions: Allergies Allergy/AdvReac Type Severity Reaction Status Date / Time Penicillins Allergy ANAPHYLAXIS Verified 02/05/19 21:59 Physical Exam - Constitutional Appears: Well, Non-toxic, No Acute Distress - Head Exam Head Exam: ATRAUMATIC - Eye Exam Eye Exam: EOMI - ENT Exam ENT Exam: Mucous Membranes Moist - Respiratory Exam Respiratory Exam: NORMAL BREATHING PATTERN - Cardiovascular Exam Cardiovascular Exam: REGULAR RHYTHM - GI/Abdominal Exam GI & Abdominal Exam: Soft. absent: Guarding, Tenderness - Rectal Exam Rectal Exam: absent: Black Stool, Bloody Stool, Hemorrhoids, Fecal Impaction Additional comments: area of fluctuance is adjacent to but does not extend into the rectum - Exam Exam: NORMAL INSPECTION. absent: Circumcision, Scrotal Swelling, Testicular Tenderness, Uretheral Discharge - Extremities Exam Extremities exam: Positive for: pedal pulses present. Negative for: calf tenderness, pedal edema - Back Exam Additional comments: 6 cm x 3 cm area of fluctuance on the inferomedial aspect to the right gluteal area - Neurological Exam Neurological exam: Alert, Oriented x3 - Psychiatric Exam Psychiatric exam: Normal Affect, Normal Mood - Skin Skin Exam: Dry, Erythema (difficult to appreciate d/t patient's skin tone), Intact, Normal Color, Warm Results - Vital Signs Recent Vital Signs: Last Vital Signs Temp 98.6 F 02/05/19 21:54 Pulse 111 H 02/05/19 21:54 Resp 18 02/05/19 21:54 BP 154/117 H 02/05/19 21:54 Pulse Ox 99 02/05/19 21:54 - Labs Result Diagrams: 02/06/19 07:00 02/06/19 07:00 Assessment & Plan - Assessment and Plan (Free Text) Assessment: 28 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 Wili Davis, PGY 1 - Date & Time Date: 02/05/19 Time: 23:05
[2019-02-05 23:13] LABS: BASO # 0.02 K/mm3 (0.0-2.0); BASO % 0.2 % (0.0-3.0); EOS # 0.1 (0.0-0.7); EOS % 0.6 % (1.5-5.0); HEMOGLOBIN 13.3 g/dL (14.0-18.0); LYMPH % 15.9 % (22.0-35.0); MEAN CELL VOLUME 78.5 fl (80.0-105.0); MEAN CORPUSCULAR HEMOGLOBIN 26.9 pg (25.0-35.0); MEAN CORPUSCULAR HGB CONC 34.3 g/dl (31.0-37.0); MONO # 1.1 (0.1-0.6); MONO % 8.3 % (1.0-6.0); RBC 4.94 10^6/uL (3.5-6.1); RED CELL DISTRIBUTION WIDTH 13.7 % (11.5-14.5); WHITE BLOOD COUNT 12.7 10^3/uL (4.5-11.0)
[2019-02-05 23:20] LABS: ALBUMIN 4.3 g/dL (3.0-4.8); ALT/SGPT 9 U/L (7-56); AST/SGOT 25 U/L (17-59); BLOOD UREA NITROGEN 10 mg/dL (7-21); CALCIUM 9.5 mg/dL (8.4-10.5); GFR NON-AFRICAN AMERICAN > 60
[2019-02-05] MEDS ORDERED: Iohexol 350 MG/100 ML VIAL ONE (23:31)
[2019-02-06] MEDS ORDERED: Vancomycin 1gm in NS 250ml 1 GM/250 ML BAG IVPB STA (01:56)
[2019-02-06] MEDS ORDERED: Aztreonam 1 Gm in NS 100mL 100 ML IVPB STA (01:56)
[2019-02-06] MEDS ORDERED: Sodium Chloride 0.9% 1,000 ML IV SCH ×2 (02:00→02:29)
--- NOTE | 2019-02-06 02:00 | ED PDOC ---
Arrival/HPI - General Chief Complaint: Back Pain Time Seen by Provider: 02/05/19 21:57 Historian: Patient - History of Present Illness Narrative History of Present Illness (Text): 02/06/19 02:10 28-year-old male with a history of HIV presenting with a one-week history of worsening perirectal pain and abscess. Patient complaining of severe pain and a lump noted to the buttocks adjacent to the anus. Patient complaining of sub jective fevers. No chest pain or shortness of breath. No abdominal pain. Patient states she is having pain with bowel movement. Patient has not taken any medications for pain at home. Patient states he takes his HIV medications 5-6 days a week. Patient states his last viral load was undetectable 5 months ago and his CD4 count was in the 700s. Past Medical History - Provider Review Nursing Documentation Reviewed: Yes - Travel History Have you recently traveled outside [place] w/in the past 3 mons?: No - Past History Past History: No Previous - Infectious Disease Hx of Infectious Diseases: None - Tetanus Immunization Tetanus Immunization: Up to Date - Cardiac Hx Cardiac Disorders: No - Pulmonary Hx Respiratory Disorders: Yes Hx Asthma: Yes - Neurological Hx Neurological Disorder: No - HEENT Hx HEENT Disorder: No - Renal Hx Renal Disorder: No - Endocrine/Metabolic Hx Endocrine Disorders: No - Hematological/Oncological Hx Blood Disorders: Yes - Integumentary Hx Dermatological Disorder: No - Musculoskeletal/Rheumatological Hx Musculoskeletal Disorders: No - Gastrointestinal Hx Gastrointestinal Disorders: No - Genitourinary/Gynecological Hx Genitourinary Disorders: No - Psychiatric Hx Psychophysiologic Disorder: No Hx Depression: No Hx Substance Use: Yes - Surgical History Hx Cholecystectomy: Yes - Anesthesia Hx Anesthesia: Yes Hx Anesthesia Reactions: No Hx Malignant Hyperthermia: No - Suicidal Assessment Feels Threatened In Home Enviroment: No Family/Social History - Physician Review Nursing Documentation Reviewed: Yes Family/Social History: Unknown Family HX Smoking Status: Light Smoker < 10 Cigarettes Daily Hx Alcohol Use: Yes Hx Substance Use: Yes Substance used: marijuana Hx Substance Use Treatment: No Allergies/Home Meds Allergies/Adverse Reactions: Allergies Penicillins Allergy (Verified 02/05/19 21:59) ANAPHYLAXIS Home Medications: Home Meds Medication Instructions Recorded Confirmed Dolutegravir Sodium [Tivicay] 1 tab PO DAILY 12/23/17 02/05/19 Emtricitabine/Tenofov Alafenam 1 each PO DAILY 12/23/17 02/05/19 [Descovy 200-25 mg Tablet] Review of Systems - Review of Systems Constitutional: Fevers. absent: Fatigue Respiratory: absent: SOB, Cough Cardiovascular: absent: Chest Pain, Palpitations Gastrointestinal: absent: Abdominal Pain, Nausea, Vomiting Genitourinary Male: absent: Dysuria, Frequency, Hematuria Musculoskeletal: absent: Back Pain, Neck Pain Skin: Abscess Neurological: absent: Headache, Dizziness Psychiatric: absent: Anxiety, Depression Physical Exam Vital Signs Reviewed: Yes Vital Signs Temp Pulse Resp BP Pulse Ox 02/06/19 00:51 99.5 F 100 H 18 159/92 H 100 02/05/19 21:54 98.6 F 111 H 18 154/117 H 99 Temperature: Afebrile Blood Pressure: Hypertensive Pulse: Tachycardic Respiratory Rate: Normal Appearance: Positive for: Well-Appearing, Non-Toxic, Comfortable Pain Distress: None Mental Status: Positive for: Alert and Oriented X 3 - Systems Exam Head: Present: Atraumatic Mouth: Present: Moist Mucous Membranes Neck: Present: Normal Range of Motion Respiratory/Chest: Present: Clear to Auscultation, Good Air Exchange. No: Respiratory Distress, Accessory Muscle Use Cardiovascular: Present: Tachycardic. No: Murmurs Abdomen: No: Tenderness, Rebound, Guarding Genitourinary Male: Present: Normal External Genitalia, Other [facility] No: Testicle Tenderness Back: Present: Normal Inspection Neurological: Present: GCS=15 Skin: Present: Warm, Dry, Normal Color, Abscess (there is a large tender area of induration with slight fluctance noted to the right medial buttock just adjacent to the anus. + erythema. ) Psychiatric: Present: Alert, Oriented x 3 Medical Decision Making ED Course and Treatment: 02/06/19 02:04 28yr old male with HIV with worsening rectal pain and abscess. low grade fever in er. tachycardic. cbc; wbc; 12.7 cmp; wnl blood cultures pending FINDINGS: HIP JOINTS: Focused images acquired of the right hip. No dislocation. The joint spaces are normal. BONES: No acute fracture or aggressive appearing osseous lesion. No suspicious focal osseous lesions. SOFT TISSUES: The pelvic viscera are unremarkable. No fluid collection, hematoma or mass. No radiopaque foreign body or soft tissue gas. MISCELLANEOUS: Bladder is predominantly decompressed and grossly unremarkable. The prostate is not enlarged. There is a small perianal /perirectal abscess just to the right of midline appreciable near series 3, image 100. This measures 4.0 x 2.2 cm on image 100. It demonstrates an enhancing rim. There is a question of focal rectal thickening at the distal rectum near series 3, image 56, versus focal contraction. If a true finding, this could represent a focal proctitis or mass. Please correlate clinically and if indicated direct visualization such as colonoscopy and/or tissue biopsy could be obtained. Alternatively, short interval repeat imaging after appropriate antimicrobial therapy could be considered if indicated. No bowel obstruction is evident on the pelvic images. There is mild bilateral inguinal lymphadenopathy. IMPRESSION: 1. There is a small perianal /perirectal abscess just to the right of midline appreciable near series 3, image 100. This measures 4.0 x 2.2 cm on image 100. It demonstrates an enhancing rim. 2. There is a question of focal rectal thickening at the distal rectum near series 3, image 56, versus focal contraction. If a true finding, this could represent a focal proctitis or mass. Please correlate clinically and if indicated direct visualization such as colonoscopy and/or tissue biopsy could be obtained. Alternatively, short interval repeat imaging after appropriate antimicrobial therapy could be considered if indicated. 3. There is mild bilateral inguinal lymphadenopathy. 4. Additional and incidental findings as described. Electronically signed on Feb 06, 2019 1:57:35 AM EDT by: Max Rajput M.D., Certified by ABR, MSK, Neuroradiology 02/06/19 02:06 All results were discussed in depth with the patient. CT results were discussed with the surgical nurse practitioner with [facility] dr[facility]ocll who discussed the case with dr. san. will admit the patient to med service obs status. iv abx. and they will see the patient in the AM pt started on aztreonam and vancomycin IV case discussed with dr. constantino; accepts obs admission. impression: perianal abscess, perirectal abscess, leukocytosis, hx of HIV admit obs med/surg Reassessment Condition: Re-examined, Improved - Lab Interpretations Lab Results: Total Bilirubin 0.8 mg/dL (0.2-1.3) 02/05/19 22:50 AST 25 U/L (17-59) 02/05/19 22:50 ALT 9 U/L (7-56) 02/05/19 22:50 Alkaline Phosphatase 84 U/L (38-126) 02/05/19 22:50 Total Protein 8.4 g/dL (5.8-8.3) H 02/05/19 22:50 Albumin 4.3 g/dL (3.0-4.8) 02/05/19 22:50 Globulin 4.1 gm/dL 02/05/19 22:50 Albumin/Globulin Ratio 1.0 (1.1-1.8) L 02/05/19 22:50 - RAD Interpretation Radiology Orders: 02/05/19 22:40 PELVIS W/IV CONTRAST ONLY [CT] Stat - Medication Orders Current Medication Orders: Sodium Chloride (Sodium Chloride 0.9%) 1,000 mls @ 140 mls/hr IV .[id number] KRISTYN Aztreonam (Azactam 1 Gm) 100 mls @ 100 mls/hr IVPB STAT STA; Protocol Stop: 02/06/19 02:55 Vancomycin HCl (Vancomycin 1gm) 1 gm in 250 mls @ 167 mls/hr IVPB STAT STA; Protocol Stop: 02/06/19 03:25 Discontinued Medications Oxycodone/Acetaminophen (Percocet 5/325 Mg Tab) 1 tab PO STAT STA Stop: 02/05/19 22:32 Last Admin: 02/05/19 22:57 Dose: 1 tab [facility] Pain Assessment Document 02/05/19 22:57 KV (Rec: 02/05/19 22:59 KV [id number]) Pain Reassessment Is this a pain reassessment? No Sleep Is patient sleeping during reassessment? No Presence of Pain Presence of Pain Yes Pain Scale Used Protocol: PSCALES Pain Scale Used Numeric Description Description Constant Intensity of Pain at present 9 Disposition/Present on Arrival - Present on Arrival Any Indicators Present on Arrival: No History of DVT/PE: No History of Uncontrolled Diabetes: No Urinary Catheter: No History of Decub. Ulcer: No History Surgical Site Infection Following: None - Disposition Have Diagnosis and Disposition been Completed?: Yes Diagnosis: Perirectal abscess, Perianal abscess, Leukocytosis Disposition: HOSPITALIZED Disposition Time: 01:00 Patient Plan: Observation Condition: FAIR Forms: [employer] (Kyrgyz)
[2019-02-06] MEDS ORDERED: Oxycodone/Acetaminophen 5/325 mg Tab PO PRN (02:33)
--- NOTE | 2019-02-06 02:37 | CP.PCM.HP ---
<Arvin Chavira - Last Filed: 02/06/19 02:45> History of Present Illness - History of Present Illness History of Present Illness: Arvin Chavira DO, PGY-1 Hospitalist Admission History and Physical for Dr. Cherry CC: rectal pain/abscess HPI: Patient is a 28 year old male with PMH of HIV (on HAART but intermittently non-compliant), HPV (s/p anal lesion resection), and asthma who presented [place] [facility] with concern of a worsening area of pain and redness on his R gluteal fold. He states he has been unable to sit or get comfortable today because of the pain. He states that this painful area has enlarged over the past two days. He admits to some subjective fever with intermittent chills but otherwise offers denies CP, SOB, abd pain/nausea/vomiting, constipation, scrotal pain, or other urinary complaints. 12-point ROS was otherwise negative except as specified above. PMD: none currently Past Medical History: HIV (on HAART but intermittently non-compliant), HPV (s/p anal lesion resection), and asthma Past Surgical History: Anal HPV lesion resections, cholecystectomy, colonscopy and EGD in 2014 Allergies: PCN (reaction: anaphylaxis) Home medications: previously on Descovy 200-25 mg daily, dolutegravir daily but has not been complaint Family History: reviewed, non-contributory Social History: admits to smoking cigarettes approximately 1 PPD for past 10 years, denies EtOH use, admits to smoking marijuana daily, admits to illicit drug abuse about 1 month ago, does not recall which drugs Present on Admission - Present on Admission Any Indicators Present on Admission: No History of DVT/PE: No History of Uncontrolled Diabetes: No Urinary Catheter: No Decubitus Ulcer Present: No Past Patient History - Infectious Disease Hx of Infectious Diseases: None - Tetanus Immunizations Tetanus Immunization: Up to Date - Past Social History Smoking Status: Light Smoker < 10 Cigarettes Daily - CARDIAC Hx Cardiac Disorders: No - PULMONARY Hx Respiratory Disorders: Yes Hx Asthma: Yes - NEUROLOGICAL Hx Neurological Disorder: No - HEENT Hx HEENT Problems: No - RENAL Hx Chronic Kidney Disease: No - ENDOCRINE/METABOLIC Hx Endocrine Disorders: No - HEMATOLOGICAL/ONCOLOGICAL Hx Blood Disorders: Yes - INTEGUMENTARY Hx Dermatological Problems: No - MUSCULOSKELETAL/RHEUMATOLOGICAL Hx Musculoskeletal Disorders: No - GASTROINTESTINAL Hx Gastrointestinal Disorders: No - GENITOURINARY/GYNECOLOGICAL Hx Genitourinary Disorders: No - PSYCHIATRIC Hx Psychophysiologic Disorder: No Hx Depression: No Hx Substance Use: Yes - SURGICAL HISTORY Hx Cholecystectomy: Yes - ANESTHESIA Hx Anesthesia: Yes Hx Anesthesia Reactions: No Hx Malignant Hyperthermia: No Meds Allergies/Adverse Reactions: Allergies Allergy/AdvReac Type Severity Reaction Status Date / Time Penicillins Allergy ANAPHYLAXIS Verified 02/05/19 21:59 Physical Exam - Constitutional Appears: Non-toxic, No Acute Distress Additional comments: appears uncomfortable, has to stay on L side because of rectal pain - Head Exam Head Exam: ATRAUMATIC, NORMOCEPHALIC - Eye Exam Eye Exam: EOMI, PERRL - ENT Exam ENT Exam: Mucous Membranes Moist - Neck Exam Neck exam: Positive for: Full Rom, Normal Inspection - Respiratory Exam Respiratory Exam: Clear to Auscultation Bilateral, NORMAL BREATHING PATTERN. absent: Accessory Muscle Use, Rales, Rhonchi, Wheezes, Respiratory Distress - Cardiovascular Exam Cardiovascular Exam: REGULAR RHYTHM, RRR, +S1, +S2. absent: Diastolic murmur, Gallop, Rubs, Systolic Murmur - GI/Abdominal Exam GI & Abdominal Exam: Normal Bowel Sounds, Soft. absent: Guarding, Rebound, Tenderness - Rectal Exam Rectal Exam: absent: Black Stool, Bloody Stool, Hemorrhoids, Fecal Impaction Additional comments: 6 cm x 3 cm area of fluctuance on the inferomedial aspect to the right gluteal area - Exam Exam: NORMAL INSPECTION. absent: Scrotal Swelling, Uretheral Discharge - Extremities Exam Extremities exam: Positive for: full ROM, normal inspection. Negative for: pedal edema - Back Exam Back exam: NORMAL INSPECTION - Neurological Exam Neurological exam: Alert, Oriented x3 - Psychiatric Exam Psychiatric exam: Normal Affect, Normal Mood - Skin Skin Exam: Dry, Intact, Warm Results - Vital Signs Recent Vital Signs: Last Vital Signs Temp 99.2 F 02/06/19 02:24 Pulse 101 H 02/06/19 02:24 Resp 16 02/06/19 02:24 BP 157/86 H 02/06/19 02:24 Pulse Ox 100 02/06/19 02:24 - Labs Result Diagrams: 02/05/19 22:50 02/05/19 22:50 Labs: Laboratory Results - last 24 hr 02/05/19 02/05/19 02/05/19 22:50 22:50 22:50 WBC 12.7 H RBC 4.94 Hgb 13.3 L Hct 38.8 L MCV 78.5 L MCH 26.9 MCHC 34.3 RDW 13.7 Plt Count 265 MPV 10.0 Neut % (Auto) 75.0 H Lymph % (Auto) 15.9 L Sp[place] % (Auto) 8.3 H Eos % (Auto) 0.6 L Baso % (Auto) 0.2 Lymph # (Auto) 2.0 Sp[place] # (Auto) 1.1 H Eos # (Auto) 0.1 Baso # (Auto) 0.02 Absolute Neuts (auto) 9.50 H Sodium 140 Potassium 3.7 Chloride 100 Carbon Dioxide 29 Anion Gap 15 BUN 10 Creatinine 1.1 Est GFR ( Amer) > 60 Est GFR (Non-Af Amer) > 60 Random Glucose 97 Calcium 9.5 Phosphorus 3.2 Magnesium 2.0 Total Bilirubin 0.8 AST 25 ALT 9 Alkaline Phosphatase 84 Total Protein 8.4 H Albumin 4.3 Globulin 4.1 Albumin/Globulin Ratio 1.0 L Assessment & Plan - Assessment and Plan (Free Text) Assessment: 28 yo M with PMH of HIV (on HAART but intermittently non-compliant), HPV (s/p anal lesion resection), and asthma admitted for surgical management of probable tej-rectal abscess and necessary IV abx. Plan: R Gluteal Erythema/Flutuance May be 2/2 perirectal abscess Has been evaluated by surgery team who state patient may go for I & D tomorrow Keep patient NPO pending surgery team recs Warm compresses to area q2h while awake Continue vanc/azactam, doses x 1 received in ED F/u blood, urine cx results May continue tylenol PRN mild pain and percocet PRN severe pain Recommend decreasing IVF to 75 cc/hr as patient was hypertensive in ED ID consult placed, surgery team following, all recs appreciated HIV F/u viral load, CD4/CD8 counts Restart HAART as previously prescribed F/u additional ID recs SW consult for outpatient f/u resources Non-compliance SW consult placed for outpatient HIV treatment resources Continue to stress importance of compliance with HAART medications with patient Substance Abuse UDS pending F/u additional SW recs DVT/GI PPX: SCD/protonix Full Code NPO pending possible I & D in AM Monitor on med/surg Patient seen, examined with, and plan discussed with my attending Dr. Jo Ann Chavira D.O. IM Resident PGY-1 <Jesús Cherry - Last Filed: 02/06/19 19:24> Results - Vital Signs Recent Vital Signs: Last Vital Signs Temp 97.9 F 02/06/19 18:00 Pulse 99 H 02/06/19 18:00 Resp 18 02/06/19 18:00 BP 135/84 02/06/19 18:00 Pulse Ox 97 02/06/19 18:00 - Labs Result Diagrams: 02/06/19 07:00 02/06/19 07:00 Labs: Laboratory Results - last 24 hr 02/05/19 02/05/19 02/05/19 22:50 22:50 22:50 WBC 12.7 H RBC 4.94 Hgb 13.3 L Hct 38.8 L MCV 78.5 L MCH 26.9 MCHC 34.3 RDW 13.7 Plt Count 265 MPV 10.0 Neut % (Auto) 75.0 H Lymph % (Auto) 15.9 L Spal[place] % (Auto) 8.3 H Eos % (Auto) 0.6 L Baso % (Auto) 0.2 Lymph # (Auto) 2.0 Spalding # (Auto) 1.1 H Eos # (Auto) 0.1 Baso # (Auto) 0.02 Absolute Neuts (auto) 9.50 H Sodium 140 Potassium 3.7 Chloride 100 Carbon Dioxide 29 Anion Gap 15 BUN 10 Creatinine 1.1 Est GFR ( Amer) > 60 Est GFR (Non-Af Amer) > 60 Random Glucose 97 Calcium 9.5 Phosphorus 3.2 Magnesium 2.0 Total Bilirubin 0.8 AST 25 ALT 9 Alkaline Phosphatase 84 Total Protein 8.4 H Albumin 4.3 Globulin 4.1 Albumin/Globulin Ratio 1.0 L Triglycerides Cholesterol LDL Cholesterol Direct HDL Cholesterol Urine Color Urine Appearance Urine pH Ur Specific Marshall Urine Protein Urine Glucose (UA) Urine Ketones Urine Blood Urine Nitrate Urine Bilirubin Urine Urobilinogen Ur Leukocyte Esterase Urine RBC Urine WBC Ur Epithelial Cells Urine Bacteria Urine Opiates Screen Urine Methadone Screen Ur Barbiturates Screen Ur Phencyclidine Scrn Ur Amphetamines Screen U Benzodiazepines Scrn U Oth Cocaine Metabols U Cannabinoids Screen 02/06/19 02/06/1902/06/19 02:40 02:40 07:00 WBC 11.0 RBC 4.64 Hgb 12.4 L Hct 36.3 L MCV 78.2 L MCH 26.7 MCHC 34.2 RDW 13.8 Plt Count 242 MPV 10.2 Neut % (Auto) 70.2 H Lymph % (Auto) 17.8 L Sp[place] % (Auto) 10.5 H Eos % (Auto) 1.2 L Baso % (Auto) 0.3 Lymph # (Auto) 2.0 Sp[place] # (Auto) 1.2 H Eos # (Auto) 0.1 Baso # (Auto) 0.03 Absolute Neuts (auto) 7.71 H Sodium Potassium Chloride Carbon Dioxide Anion Gap BUN Creatinine Est GFR ( Amer) Est GFR (Non-Af Amer) Random Glucose Calcium Phosphorus Magnesium Total Bilirubin AST ALT Alkaline Phosphatase Total Protein Albumin Globulin Albumin/Globulin Ratio Triglycerides Cholesterol LDL Cholesterol Direct HDL Cholesterol Urine Color Yellow Urine Appearance Clear Urine pH 7.0 Ur Specific Marshall 1.015 Urine Protein Trace H Urine Glucose (UA) Negative Urine Ketones 15 H Urine Blood Negative Urine Nitrate Negative Urine Bilirubin Negative Urine Urobilinogen 1.0 H Ur Leukocyte Esterase Negative Urine RBC 1 - 3 H Urine WBC 1 - 3 Ur Epithelial Cells 1 - 3 Urine Bacteria Rare Urine Opiates Screen Negative Urine Methadone Screen Negative Ur Barbiturates Screen Negative Ur Phencyclidine Scrn Negative Ur Amphetamines Screen Positive H U Benzodiazepines Scrn Negative U Oth Cocaine Metabols Negative U Cannabinoids Screen Positive H 02/06/19 07:00 WBC RBC Hgb Hct MCV MCH MCHC RDW Plt Count MPV Neut % (Auto) Lymph % (Auto) Spalding % (Auto) Eos % (Auto) Baso % (Auto) Lymph # (Auto) Spalding # (Auto) Eos # (Auto) Baso # (Auto) Absolute Neuts (auto) Sodium 139 Potassium 3.8 Chloride 103 Carbon Dioxide 27 Anion Gap 14 BUN 8 Creatinine 1.0 Est GFR ( Amer) > 60 Est GFR (Non-Af Amer) > 60 Random Glucose 83 Calcium 8.9 Phosphorus Magnesium Total Bilirubin 1.2 AST 31 ALT 17 Alkaline Phosphatase 79 Total Protein 7.5 Albumin 3.7 Globulin 3.8 Albumin/Globulin Ratio 1.0 L Triglycerides 55 Cholesterol 107 L LDL Cholesterol Direct 62 HDL Cholesterol 26 L Urine Color Urine Appearance Urine pH Ur Specific Marshall Urine Protein Urine Glucose (UA) Urine Ketones Urine Blood Urine Nitrate Urine Bilirubin Urine Urobilinogen Ur Leukocyte Esterase Urine RBC Urine WBC Ur Epithelial Cells Urine Bacteria Urine Opiates Screen Urine Methadone Screen Ur Barbiturates Screen Ur Phencyclidine Scrn Ur Amphetamines Screen U Benzodiazepines Scrn U Oth Cocaine Metabols U Cannabinoids Screen Attending/Attestation - Attestation I have personally seen and examined this patient.: Yes I have fully participated in the care of the patient.: Yes I have reviewed all pertinent clinical information: Yes Notes (Text): 02/06/19 19:23 seen and examined. Discussed with resident. added morphine as pain not controlled on percocet.
[2019-02-06 03:21] LABS: OPIATES, UR NEGATIVE (NEGATIVE)
[2019-02-06 03:24] LABS: URINE APPEARANCE CLEAR (CLEAR); URINE BILIRUBIN NEGATIVE (NEGATIVE); URINE BLOOD NEGATIVE (NEGATIVE); URINE COLOR YELLOW (YELLOW); URINE GLUCOSE (UA) NEGATIVE (NEGATIVE); URINE LEUKOCYTE ESTERASE NEGATIVE Leu/uL (NEGATIVE); URINE PROTEIN TRACE mg/dL (<30 mg/dL)
[2019-02-06 03:36] LABS: URINE BACTERIA RARE /hpf
[2019-02-06 03:57] LABS: BARBITURATES, UR NEGATIVE (NEGATIVE); BENZODIAZEPINES, UR NEGATIVE (NEGATIVE); PHENCYCLIDINE, UR NEGATIVE (NEGATIVE)
[2019-02-06 05:24] VITALS: BMI 31.4
[2019-02-06] MEDS: Pantoprazole 40 mg EC Tab PO SCH (05:25)
[2019-02-06] MEDS ORDERED: Morphine 2 mg/ml ISec IVP STA ×2 (06:27→08:09)
[2019-02-06 07:26] LABS: BASO # 0.03 K/mm3 (0.0-2.0); BASO % 0.3 % (0.0-3.0); EOS # 0.1 (0.0-0.7); EOS % 1.2 % (1.5-5.0); HEMOGLOBIN 12.4 g/dL (14.0-18.0); LYMPH % 17.8 % (22.0-35.0); MEAN CELL VOLUME 78.2 fl (80.0-105.0); MEAN CORPUSCULAR HEMOGLOBIN 26.7 pg (25.0-35.0); MEAN CORPUSCULAR HGB CONC 34.2 g/dl (31.0-37.0); MEAN PLATELET VOLUME 10.2 fl (7.0-11.0); MONO # 1.2 (0.1-0.6); MONO % 10.5 % (1.0-6.0); RBC 4.64 10^6/uL (3.5-6.1); RED CELL DISTRIBUTION WIDTH 13.8 % (11.5-14.5)
--- NOTE | 2019-02-06 07:38 | CP.PCM.PN ---
Subjective - Date & Time of Evaluation Date of Evaluation: 02/06/19 Time of Evaluation: 07:15 - Subjective Subjective: General Surgery Progress note for Dr. Rasheed Patient seen and examined this am at bedside. no acute events overnight. continues to have pain at right gluteal fold site. otherwise denies COLVIN, N/V, f/c, abdominal pain, SOB CP and extremity pain/weakness. Objective - Vital Signs/Intake and Output Vital Signs (last 24 hours): Temp Pulse Resp BP Pulse Ox 99.2 F 101 H 18 157/86 H 100 02/06/19 02:24 02/06/19 02:24 02/06/19 03:13 02/06/19 02:24 02/06/19 02:24 Intake and Output: 02/06/19 02/06/19 06:59 18:59 Intake Total 0 Balance 0 - Medications Medications: Current Medications Acetaminophen (Tylenol 325mg Tab) 650 mg PO Q6H PRN PRN Reason: Pain, Mild (1-3) Home Med (Home Med) 1 unit PO DAILY [facility] Sodium Chloride (Sodium Chloride 0.9%) 1,000 mls @ 75 mls/hr IV .[id number] [facility] Last Admin: 02/06/19 02:40 Dose: 75 mls/hr Aztreonam (Azactam 1 Gm) 100 mls @ 100 mls/hr IVPB Q8 KRISTYN; Protocol Stop: 02/06/19 14:59 Vancomycin HCl (Vancomycin 1gm) 1 gm in 250 mls @ 167 mls/hr IVPB DAILY [facility]; Protocol Morphine Sulfate (Morphine) 2 mg IVP Q4H PRN PRN Reason: Pain, severe (8-10) Dolutegravir Sodium ([Tivicay] (Home Med)) 1 tab PO DAILY KRISTYN Oxycodone/Acetaminophen (Percocet 5/325 Mg Tab) 1 tab PO Q4H PRN PRN Reason: Pain, moderate (4-7) Stop: 02/09/19 02:46 Pantoprazole Sodium (Protonix Ec Tab) 40 mg PO 0600 [facility] Last Admin: 02/06/19 05:25 Dose: Not Given - Labs Labs: 02/06/19 07:00 02/05/19 22:50 - Constitutional Appears: Well, Non-toxic, No Acute Distress - Head Exam Head Exam: ATRAUMATIC - Eye Exam Eye Exam: EOMI - ENT Exam ENT Exam: Mucous Membranes Moist - Respiratory Exam Respiratory Exam: NORMAL BREATHING PATTERN - Cardiovascular Exam Cardiovascular Exam: REGULAR RHYTHM - GI/Abdominal Exam GI & Abdominal Exam: Soft. absent: Guarding, Tenderness, Rebound - Exam Exam: NORMAL INSPECTION. absent: Circumcision, Scrotal Swelling, Testicular Tenderness, Uretheral Discharge Additional comments: 8 cm x 5 cm area of induration over the inferiormedial gluteal fold. - Extremities Exam Extremities Exam: absent: Calf Tenderness, Pedal Edema - Psychiatric Exam Psychiatric exam: Normal Affect, Normal Mood - Skin Skin Exam: Dry, Erythema (difficult to evaluate d/t patient's skin tone), Warm Assessment and Plan - Assessment and Plan (Free Text) Assessment: 28 yr old male with PMH HIV and HPV anal lesions with a tender indurated perirectal/peranal abscess Plan: - continue abx per ID - I&D bedside this am - pain control - dressing and packing changed daily - wound culture sent - regular diet as tolerated - discuss with Dr. Wili Davis, PGY 1
[2019-02-06 07:43] LABS: ALBUMIN 3.7 g/dL (3.0-4.8); BLOOD UREA NITROGEN 8 mg/dL (7-21); CALCIUM 8.9 mg/dL (8.4-10.5); GFR NON-AFRICAN AMERICAN > 60
[2019-02-06 07:44] LABS: ALT/SGPT 17 U/L (7-56); AST/SGOT 31 U/L (17-59); HDL CHOLESTEROL 26 mg/dL (29-60)
[2019-02-06 07:53] LABS: LDL CHOLESTEROL 62 mg/dL (0-129)
[2019-02-06] MEDS ORDERED: Lidocaine 1%/Epinephrine 1:100000 30 ml vial IJ ONE (07:57)
--- NOTE | 2019-02-06 09:18 | CT ---
Date of service: 02/05/2019 PROCEDURE: CT pelvis HISTORY: rectal pain. r/o tej rectal abscess COMPARISON: CT abdomen/pelvis 12/24/2017 TECHNIQUE: Following the intravenous administration of 100 mL Omnipaque 350, 2.5 mm contiguous axial sections were acquired through the pelvis, to the perineum. Sagittal and coronal images were reformatted from the axial scan. Total exam DLP: 831.21 mGy-cm. This CT exam was performed using 1 or more of the following dose reduction techniques: Automated exposure control, adjustment of the mA and/or kV according to patient size, and/or use of iterative reconstruction technique. The FINDINGS: rectum and anus appear unremarkable. Inferior to the anus, along the medial right thigh, there is cellulitis and a lesley subcutaneous abscess measuring 1.9 x 3.9 x 4.4 cm. Cutaneous thickening and stranding of surrounding subcutaneous fat is seen in association with this abscess, consistent with focal cellulitis. This does not extend to the level of the anorectal complex. The visualized bowel is unremarkable. There is no ascites. There is no pelvic lymphadenopathy. The urinary bladder is unremarkable. A normal prostate is visualized. There is no osseous abnormality appreciated. IMPRESSION: No evidence of perirectal abscess. There is cellulitis and focal abscess in the upper medial right thigh is measuring 4.4 cm in greatest dimension. This is considered a drainable collection. No other significant abnormality is identified. The preliminary findings for this examination were reported by [facility] at 1:57 a.m. on 02/06/2019.. There is discordance of this report with the preliminary findings. The abscess in the medial upper right thigh does not extend to the level of the anal rectal complex and is therefore not classified as a true perianal abscess. The reported focal thickening of the rectal wall is felt to be most likely artifactual due to inadequate distention. Nevertheless, consider nonemergent evaluation with colonoscopy/sigmoidoscopy when clinically feasible.
--- NOTE | 2019-02-06 09:21 | PCM.PROC ---
- Incision & Drainage Of Abscess Anesthesia: Lidocaine 1%, With Epi Prep Used: Betadine Procedure: Incised W/Scalpel Blade#: (11), Drained Pus, Irrigated Cavity W/Saline, Probed To Break Up Loculations, Packed W/Gauze, Cultures Obtained And Sent To Lab Time Out Process - Time Out Process Patient identification (MR# and name from ID Band): Yes Procedure verified: Yes Consent read aloud and agreed upon: Yes Correct Site/Side marked and visibe to team after prepping and draping (unless exempt): Yes Implants, special equipment and x-rays available: Not Applicable Prophylactic antibiotic given (if applicable): Not Applicable Correct position: Yes Correct Team: Yes All team members are in agreement: Yes Addendum Addendum: Consent was obtained prior to the procedure and witnessed by the nurse. Risks and benefits of the procedure and possible complications were reviewed. Patient voiced understanding and all questions were answered prior to the procedure. 02/06/19 09:20
[2019-02-06] MEDS ORDERED: DOLUTEGRAVIR SODIUM PO SCH (10:00)
[2019-02-06] MEDS: DOLUTEGRAVIR SODIUM PO SCH (11:08)
[2019-02-06] MEDS: TENOFOV ALAFENAM PO SCH (11:13)
[2019-02-06] MEDS: EMTRICITABINE PO SCH (11:13)
--- NOTE | 2019-02-06 12:51 | CP.PCM.CON ---
<Elroy Pandya - Last Filed: 02/06/19 13:41> History of Present Illness - History of Present Illness History of Present Illness: Elroy Pandya D.O. PGY-3, Internal Medicine Resident, Infectious Disease Consultation Note 28 year old male with a PMH of HIV on ART with questionable compliance and asthma who [place] [facility] [place] concerns of perirectal pain and swelling. Infectious disease consultation was requested for possible abscess. Patient was seen and examined at bedside. Patient states that for about 1 week he started feeling a "little pebble" in the right glute. Patient states that it started to feel uncomfortable but then over the course of the week it started growing and growing. Patient then yesterday felt as if he could barely walk due to the pain and that the pebble had grown a lot. Patient then decided to come in. Review of Systems - Review of Systems All systems: reviewed and no additional remarkable complaints except (as per HPI) Past Patient History - Infectious Disease Hx of Infectious Diseases: None - Tetanus Immunizations Tetanus Immunization: Up to Date - Past Social History Smoking Status: Light Smoker < 10 Cigarettes Daily - CARDIAC Hx Cardiac Disorders: No - PULMONARY Hx Respiratory Disorders: Yes Hx Asthma: Yes - NEUROLOGICAL Hx Neurological Disorder: No - HEENT Hx HEENT Problems: No - RENAL Hx Chronic Kidney Disease: No - ENDOCRINE/METABOLIC Hx Endocrine Disorders: No - HEMATOLOGICAL/ONCOLOGICAL Hx Blood Disorders: Yes - INTEGUMENTARY Hx Dermatological Problems: No - MUSCULOSKELETAL/RHEUMATOLOGICAL Hx Musculoskeletal Disorders: No - GASTROINTESTINAL Hx Gastrointestinal Disorders: No - GENITOURINARY/GYNECOLOGICAL Hx Genitourinary Disorders: No - PSYCHIATRIC Hx Psychophysiologic Disorder: No Hx Depression: No Hx Substance Use: Yes - SURGICAL HISTORY Hx Cholecystectomy: Yes - ANESTHESIA Hx Anesthesia: Yes Hx Anesthesia Reactions: No Hx Malignant Hyperthermia: No Meds Allergies/Adverse Reactions: Allergies Allergy/AdvReac Type Severity Reaction Status Date / Time Penicillins Allergy ANAPHYLAXIS Verified 02/05/19 21:59 - Medications Medications: Current Medications Acetaminophen (Tylenol 325mg Tab) 650 mg PO Q6H PRN PRN Reason: Pain, Mild (1-3) Home Med (Home Med) 1 unit PO DAILY [facility] Last Admin: 02/06/19 11:13 Dose: 1 unit Aztreonam (Azactam 1 Gm) 100 mls @ 100 mls/hr IVPB Q8 [facility]; Protocol Stop: 02/06/19 14:59 Vancomycin HCl (Vancomycin 1gm) 1 gm in 250 mls @ 167 mls/hr IVPB DAILY [facility]; Protocol Morphine Sulfate (Morphine) 2 mg IVP Q4H PRN PRN Reason: Pain, severe (8-10) Dolutegravir Sodium ([Tivicay] (Home Med)) 1 tab PO DAILY [facility] Last Admin: 02/06/19 11:08 Dose: Not Given Oxycodone/Acetaminophen (Percocet 5/325 Mg Tab) 1 tab PO Q4H PRN PRN Reason: Pain, moderate (4-7) Stop: 02/09/19 02:46 Pantoprazole Sodium (Protonix Ec Tab) 40 mg PO 0600 [facility] Last Admin: 02/06/19 05:25 Dose: Not Given Physical Exam - Constitutional Appears: Non-toxic, No Acute Distress - Head Exam Head Exam: ATRAUMATIC, NORMOCEPHALIC - Eye Exam Eye Exam: EOMI. absent: Scleral icterus - ENT Exam ENT Exam: Mucous Membranes Moist, Normal Oropharynx - Neck Exam Neck exam: Positive for: Normal Inspection - Respiratory Exam Respiratory Exam: Clear to Auscultation Bilateral. absent: Rhonchi, Wheezes - Cardiovascular Exam Cardiovascular Exam: RRR, +S1, +S2. absent: Gallop, Rubs - GI/Abdominal Exam GI & Abdominal Exam: Normal Bowel Sounds, Soft. absent: Tenderness - Rectal Exam Additional comments: fluctuant tender ~6x3 arrow shaped area over right medial lower glute/upper thigh - Extremities Exam Extremities exam: Negative for: calf tenderness, pedal edema - Neurological Exam Neurological exam: Alert, CN II-XII Intact, Oriented x3 - Skin Skin Exam: Dry, Warm Results - Vital Signs Recent Vital Signs: Last Vital Signs Temp 97.4 F L 02/06/19 07:39 Pulse 98 H 02/06/19 07:39 Resp 20 02/06/19 07:39 BP 151/79 H 02/06/19 07:39 Pulse Ox 95 02/06/19 07:39 - Labs Result Diagrams: 02/06/19 07:00 02/06/19 07:00 Labs: Laboratory Results - last 24 hr 02/05/19 02/05/19 02/05/19 22:50 22:50 22:50 WBC 12.7 H RBC 4.94 Hgb 13.3 L Hct 38.8 L MCV 78.5 L MCH 26.9 MCHC 34.3 RDW 13.7 Plt Count 265 MPV 10.0 Neut % (Auto) 75.0 H Lymph % (Auto) 15.9 L Bulloch % (Auto) 8.3 H Eos % (Auto) 0.6 L Baso % (Auto) 0.2 Lymph # (Auto) 2.0 Bulloch # (Auto) 1.1 H Eos # (Auto) 0.1 Baso # (Auto) 0.02 Absolute Neuts (auto) 9.50 H Sodium 140 Potassium 3.7 Chloride 100 Carbon Dioxide 29 Anion Gap 15 BUN 10 Creatinine 1.1 Est GFR ( Amer) > 60 Est GFR (Non-Af Amer) > 60 Random Glucose 97 Calcium 9.5 Phosphorus 3.2 Magnesium 2.0 Total Bilirubin 0.8 AST 25 ALT 9 Alkaline Phosphatase 84 Total Protein 8.4 H Albumin 4.3 Globulin 4.1 Albumin/Globulin Ratio 1.0 L Triglycerides Cholesterol LDL Cholesterol Direct HDL Cholesterol Urine Color Urine Appearance Urine pH Ur Specific Eagle Urine Protein Urine Glucose (UA) Urine Ketones Urine Blood Urine Nitrate Urine Bilirubin Urine Urobilinogen Ur Leukocyte Esterase Urine RBC Urine WBC Ur Epithelial Cells Urine Bacteria Urine Opiates Screen Urine Methadone Screen Ur Barbiturates Screen Ur Phencyclidine Scrn Ur Amphetamines Screen U Benzodiazepines Scrn U Oth Cocaine Metabols U Cannabinoids Screen 02/06/19 02/06/19 02/06/19 02:40 02:40 07:00 WBC 11.0 RBC 4.64 Hgb 12.4 L Hct 36.3 L MCV 78.2 L MCH 26.7 MCHC 34.2 RDW 13.8 Plt Count 242 MPV 10.2 Neut % (Auto) 70.2 H Lymph % (Auto) 17.8 L Bull[place] % (Auto) 10.5 H Eos % (Auto) 1.2 L Baso % (Auto) 0.3 Lymph # (Auto) 2.0 Bulloch # (Auto) 1.2 H Eos # (Auto) 0.1 Baso # (Auto) 0.03 Absolute Neuts (auto) 7.71 H Sodium Potassium Chloride Carbon Dioxide Anion Gap BUN Creatinine Est GFR ( Amer) Est GFR (Non-Af Amer) Random Glucose Calcium Phosphorus Magnesium Total Bilirubin AST ALT Alkaline Phosphatase Total Protein Albumin Globulin Albumin/Globulin Ratio Triglycerides Cholesterol LDL Cholesterol Direct HDL Cholesterol Urine Color Yellow Urine Appearance Clear Urine pH 7.0 Ur Specific Eagle 1.015 Urine Protein Trace H Urine Glucose (UA) Negative Urine Ketones 15 H Urine Blood Negative Urine Nitrate Negative Urine Bilirubin Negative Urine Urobilinogen 1.0 H Ur Leukocyte Esterase Negative Urine RBC 1 - 3 H Urine WBC 1 - 3 Ur Epithelial Cells 1 - 3 Urine Bacteria Rare Urine Opiates Screen Negative Urine Methadone Screen Negative Ur Barbiturates Screen Negative Ur Phencyclidine Scrn Negative Ur Amphetamines Screen Positive H U Benzodiazepines Scrn Negative U Oth Cocaine Metabols Negative U Cannabinoids Screen Positive H 02/06/19 07:00 WBC RBC Hgb Hct MCV MCH MCHC RDW Plt Count MPV Neut % (Auto) Lymph % (Auto) Bulloch % (Auto) Eos % (Auto) Baso % (Auto) Lymph # (Auto) Bulloch # (Auto) Eos # (Auto) Baso # (Auto) Absolute Neuts (auto) Sodium 139 Potassium 3.8 Chloride 103 Carbon Dioxide 27 Anion Gap 14 BUN 8 Creatinine 1.0 Est GFR ( Amer) > 60 Est GFR (Non-Af Amer) > 60 Random Glucose 83 Calcium 8.9 Phosphorus Magnesium Total Bilirubin 1.2 AST 31 ALT 17 Alkaline Phosphatase 79 Total Protein 7.5 Albumin 3.7 Globulin 3.8 Albumin/Globulin Ratio 1.0 L Triglycerides 55 Cholesterol 107 L LDL Cholesterol Direct 62 HDL Cholesterol 26 L Urine Color Urine Appearance Urine pH Ur Specific [place] Urine Protein Urine Glucose (UA) Urine Ketones Urine Blood Urine Nitrate Urine Bilirubin Urine Urobilinogen Ur Leukocyte Esterase Urine RBC Urine WBC Ur Epithelial Cells Urine Bacteria Urine Opiates Screen Urine Methadone Screen Ur Barbiturates Screen Ur Phencyclidine Scrn Ur Amphetamines Screen U Benzodiazepines Scrn U Oth Cocaine Metabols U Cannabinoids Screen Assessment & Plan - Assessment and Plan (Free Text) Assessment: 28 year old male with a PMH of HIV on ART with questionable compliance and asthma who [place] [facility] [place] concerns of perirectal pain and swelling. Infectious disease consultation was requested for possible abscess. Plan: Sepsis with tachycardia and leukocytosis likely from right upper thigh/lower glute abscess HIV on HAART with questionable compliance Surgery consulted, needs I&D On aztreo/vanc day 1 Cultures obtained HIV viral load and CD4 count ordered Encouraged to obtain his HIV medication to take while inpatient Will monitor Patient was seen and examined and case will be discussed with attending physician Thank you for the pleasure participating in the care of this interesting patient - Date & Time Date: 02/06/19 Time: 10:40 <Michael Hinton - Last Filed: 02/06/19 17:48> Meds - Medications Medications: Current Medications Acetaminophen (Tylenol 325mg Tab) 650 mg PO Q6H PRN PRN Reason: Pain, Mild (1-3) Home Med (Home Med) 1 unit PO DAILY [facility] Last Admin: 02/06/19 11:13 Dose: 1 unit Vancomycin HCl (Vancomycin 1gm) 1 gm in 250 mls @ 167 mls/hr IVPB DAILY [facility]; Protocol Last Admin: 02/06/19 15:30 Dose: 167 mls/hr Morphine Sulfate (Morphine) 2 mg IVP Q4H PRN PRN Reason: Pain, severe (8-10) Dolutegravir Sodium ([Tivicay] (Home Med)) 1 tab PO DAILY [facility] Last Admin: 02/06/19 11:08 Dose: Not Given Oxycodone/Acetaminophen (Percocet 5/325 Mg Tab) 1 tab PO Q4H PRN PRN Reason: Pain, moderate (4-7) Stop: 02/09/19 02:46 Pantoprazole Sodium (Protonix Ec Tab) 40 mg PO 0600 [facility] Last Admin: 02/06/19 05:25 Dose: Not Given Results - Vital Signs Recent Vital Signs: Last Vital Signs Temp 98.2 F 02/06/19 14:00 Pulse 90 02/06/19 14:00 Resp 20 02/06/19 14:00 BP 157/99 H 02/06/19 14:00 Pulse Ox 99 02/06/19 14:00 - Labs Result Diagrams: 02/06/19 07:00 02/06/19 07:00 Labs: Laboratory Results - last 24 hr 02/05/19 02/05/19 02/05/19 22:50 22:50 22:50 WBC 12.7 H RBC 4.94 Hgb 13.3 L Hct 38.8 L MCV 78.5 L MCH 26.9 MCHC 34.3 RDW 13.7 Plt Count 265 MPV 10.0 Neut % (Auto) 75.0 H Lymph % (Auto) 15.9 L Bulloch % (Auto) 8.3 H Eos % (Auto) 0.6 L Baso % (Auto) 0.2 Lymph # (Auto) 2.0 Bulloch # (Auto) 1.1 H Eos # (Auto) 0.1 Baso # (Auto) 0.02 Absolute Neuts (auto) 9.50 H Sodium 140 Potassium 3.7 Chloride 100 Carbon Dioxide 29 Anion Gap 15 BUN 10 Creatinine 1.1 Est GFR ( Amer) > 60 Est GFR (Non-Af Amer) > 60 Random Glucose 97 Calcium 9.5 Phosphorus 3.2 Magnesium 2.0 Total Bilirubin 0.8 AST 25 ALT 9 Alkaline Phosphatase 84 Total Protein 8.4 H Albumin 4.3 Globulin 4.1 Albumin/Globulin Ratio 1.0 L Triglycerides Cholesterol LDL Cholesterol Direct HDL Cholesterol Urine Color Urine Appearance Urine pH Ur Specific [place] Urine Protein Urine Glucose (UA) Urine Ketones Urine Blood Urine Nitrate Urine Bilirubin Urine Urobilinogen Ur Leukocyte Esterase Urine RBC Urine WBC Ur Epithelial Cells Urine Bacteria Urine Opiates Screen Urine Methadone Screen Ur Barbiturates Screen Ur Phencyclidine Scrn Ur Amphetamines Screen U Benzodiazepines Scrn U Oth Cocaine Metabols U Cannabinoids Screen 02/06/19 02/06/19 02/06/19 02:40 02:40 07:00 WBC 11.0 RBC 4.64 Hgb 12.4 L Hct 36.3 L MCV 78.2 L MCH 26.7 MCHC 34.2 RDW 13.8 Plt Count 242 MPV 10.2 Neut % (Auto) 70.2 H Lymph % (Auto) 17.8 L Bull[place] % (Auto) 10.5 H Eos % (Auto) 1.2 L Baso % (Auto) 0.3 Lymph # (Auto) 2.0 Bulloch # (Auto) 1.2 H Eos # (Auto) 0.1 Baso # (Auto) 0.03 Absolute Neuts (auto) 7.71 H Sodium Potassium Chloride Carbon Dioxide Anion Gap BUN Creatinine Est GFR ( Amer) Est GFR (Non-Af Amer) Random Glucose Calcium Phosphorus Magnesium Total Bilirubin AST ALT Alkaline Phosphatase Total Protein Albumin Globulin Albumin/Globulin Ratio Triglycerides Cholesterol LDL Cholesterol Direct HDL Cholesterol Urine Color Yellow Urine Appearance Clear Urine pH 7.0 Ur Specific Eagle 1.015 Urine Protein Trace H Urine Glucose (UA) Negative Urine Ketones 15 H Urine Blood Negative Urine Nitrate Negative Urine Bilirubin Negative Urine Urobilinogen 1.0 H Ur Leukocyte Esterase Negative Urine RBC 1 - 3 H Urine WBC 1 - 3 Ur Epithelial Cells 1 - 3 Urine Bacteria Rare Urine Opiates Screen Negative Urine Methadone Screen Negative Ur Barbiturates Screen Negative Ur Phencyclidine Scrn Negative Ur Amphetamines Screen Positive H U Benzodiazepines Scrn Negative U Oth Cocaine Metabols Negative U Cannabinoids Screen Positive H 02/06/19 07:00 WBC RBC Hgb Hct MCV MCH MCHC RDW Plt Count MPV Neut % (Auto) Lymph % (Auto) Bull[place] % (Auto) Eos % (Auto) Baso % (Auto) Lymph # (Auto) Bulloch # (Auto) Eos # (Auto) Baso # (Auto) Absolute Neuts (auto) Sodium 139 Potassium 3.8 Chloride 103 Carbon Dioxide 27 Anion Gap 14 BUN 8 Creatinine 1.0 Est GFR ( Amer) > 60 Est GFR (Non-Af Amer) > 60 Random Glucose 83 Calcium 8.9 Phosphorus Magnesium Total Bilirubin 1.2 AST 31 ALT 17 Alkaline Phosphatase 79 Total Protein 7.5 Albumin 3.7 Globulin 3.8 Albumin/Globulin Ratio 1.0 L Triglycerides 55 Cholesterol 107 L LDL Cholesterol Direct 62 HDL Cholesterol 26 L Urine Color Urine Appearance Urine pH Ur Specific [place] Urine Protein Urine Glucose (UA) Urine Ketones Urine Blood Urine Nitrate Urine Bilirubin Urine Urobilinogen Ur Leukocyte Esterase Urine RBC Urine WBC Ur Epithelial Cells Urine Bacteria Urine Opiates Screen Urine Methadone Screen Ur Barbiturates Screen Ur Phencyclidine Scrn Ur Amphetamines Screen U Benzodiazepines Scrn U Oth Cocaine Metabols U Cannabinoids Screen Attending/Attestation - Attestation I have personally seen and examined this patient.: Yes I have fully participated in the care of the patient.: Yes I have reviewed all pertinent clinical information: Yes Notes (Text): 02/06/19 17:47 SEPSIS, PERIRECTAL ABSCESS POSITIVE HIV /AIDS VANCO/MERR
[2019-02-06] MEDS ORDERED: Vancomycin 1gm in NS 250ml 1 GM/250 ML BAG IVPB SCH (13:00)
[2019-02-06] MEDS: Aztreonam 1 Gm in NS 100mL 100 ML IVPB SCH ×2 (14:30→18:22)
[2019-02-06] MEDS: Vancomycin 1gm in NS 250ml 1 GM/250 ML BAG IVPB SCH (20:05)
[2019-02-06] MEDS: Meropenem IV 1 gm in NS 1 GM/50 ML BAG IVPB SCH ×2 (20:10→21:49)
[2019-02-06] MEDS: Morphine 2 mg/ml ISec IVP PRN (20:41)
[2019-02-06] MEDS: Acyclovir 500 MG in Sodium Chloride 0.9% 100 ML IV SCH (21:49)
[2019-02-07] MEDS: Acyclovir 500 MG in Sodium Chloride 0.9% 100 ML IV SCH ×3 (06:04→21:06)
[2019-02-07] MEDS: Meropenem IV 1 gm in NS 1 GM/50 ML BAG IVPB SCH ×3 (06:04→21:06)
[2019-02-07] MEDS: Vancomycin 1gm in NS 250ml 1 GM/250 ML BAG IVPB SCH ×2 (06:05→17:25)
[2019-02-07] MEDS: Pantoprazole 40 mg EC Tab PO SCH (06:05)
[2019-02-07 06:33] LABS: BASO # 0.04 K/mm3 (0.0-2.0); BASO % 0.5 % (0.0-3.0); EOS # 0.3 (0.0-0.7); EOS % 3.3 % (1.5-5.0); LYMPH # 1.9 (1.2-3.4); LYMPH % 21.5 % (22.0-35.0); MEAN CELL VOLUME 78.1 fl (80.0-105.0); MEAN CORPUSCULAR HEMOGLOBIN 26.4 pg (25.0-35.0); MEAN CORPUSCULAR HGB CONC 33.8 g/dl (31.0-37.0); MEAN PLATELET VOLUME 10.1 fl (7.0-11.0); MONO # 0.8 (0.1-0.6); MONO % 9.2 % (1.0-6.0); RBC 4.93 10^6/uL (3.5-6.1); RED CELL DISTRIBUTION WIDTH 13.7 % (11.5-14.5); WHITE BLOOD COUNT 8.7 10^3/uL (4.5-11.0)
[2019-02-07 06:52] LABS: ALB/GLOB RATIO 0.9 (1.1-1.8); ALBUMIN 3.6 g/dL (3.0-4.8); ALT/SGPT 55 U/L (7-56); AST/SGOT 61 U/L (17-59); BLOOD UREA NITROGEN 10 mg/dL (7-21); GFR NON-AFRICAN AMERICAN > 60
[2019-02-07 07:59] VITALS: TEMP 98
[2019-02-07] MEDS: Morphine 2 mg/ml ISec IVP PRN (09:29)
[2019-02-07] MEDS: TENOFOV ALAFENAM PO SCH (10:00)
[2019-02-07] MEDS: EMTRICITABINE PO SCH (10:00)
[2019-02-07] MEDS: DOLUTEGRAVIR SODIUM PO SCH (10:40)
--- NOTE | 2019-02-07 11:13 | CP.PCM.PN ---
Subjective - Date & Time of Evaluation Date of Evaluation: 02/07/19 Time of Evaluation: 09:30 - Subjective Subjective: PGeneral surgery progress note for Dr. Rasheed Patient seen and examined this ma at bedside. States his pain is much improved. Patient denies graf, CP, SOB, f/c, n/v, and extremity pain/weakness Objective - Vital Signs/Intake and Output Vital Signs (last 24 hours): Temp Pulse Resp BP Pulse Ox 98 F 70 18 129/80 100 02/07/19 06:00 02/07/19 06:00 02/07/19 06:00 02/07/19 06:00 02/07/19 06:00 Intake and Output: 02/07/19 02/07/19 06:59 18:59 Intake Total 240 Balance 240 - Medications Medications: Current Medications Acetaminophen (Tylenol 325mg Tab) 650 mg PO Q6H PRN PRN Reason: Pain, Mild (1-3) Home Med (Home Med) 1 unit PO DAILY [facility] Last Admin: 02/06/19 11:13 Dose: 1 unit Meropenem (Merrem Iv 1 Gm Premix) 1 gm in 50 mls @ 100 mls/hr IVPB Q8 [facility]; Protocol Stop: 02/15/19 17:50 Last Admin: 02/07/19 06:04 Dose: 100 mls/hr Vancomycin HCl (Vancomycin 1gm) 1 gm in 250 mls @ 167 mls/hr IVPB Q12H [facility]; Protocol Stop: 02/15/19 18:01 Last Admin: 02/07/19 06:05 Dose: 167 mls/hr Acyclovir 500 mg/ Sodium (Chloride) 100 mls @ 100 mls/hr IV Q8 [facility]; Protocol Stop: 02/13/19 22:01 Last Admin: 02/07/19 06:04 Dose: 100 mls/hr Morphine Sulfate (Morphine) 2 mg IVP Q4H PRN PRN Reason: Pain, severe (8-10) Last Admin: 02/07/19 09:29 Dose: 2 mg Dolutegravir Sodium ([Tivicay] (Home Med)) 1 tab PO DAILY [facility] Last Admin: 02/07/19 10:40 Dose: Not Given Oxycodone/Acetaminophen (Percocet 5/325 Mg Tab) 1 tab PO Q4H PRN PRN Reason: Pain, moderate (4-7) Stop: 02/09/19 02:46 Pantoprazole Sodium (Protonix Ec Tab) 40 mg PO 0600 [facility] Last Admin: 02/07/19 06:05 Dose: 40 mg - Labs Labs: 02/07/19 06:00 02/07/19 06:00 - Constitutional Appears: Well, Non-toxic, No Acute Distress - Head Exam Head Exam: ATRAUMATIC - Eye Exam Eye Exam: EOMI - ENT Exam ENT Exam: Mucous Membranes Moist - Respiratory Exam Respiratory Exam: NORMAL BREATHING PATTERN - Cardiovascular Exam Cardiovascular Exam: REGULAR RHYTHM - GI/Abdominal Exam GI & Abdominal Exam: Soft. 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 Rasheed, further recs per him Viv Davis, PGY 1
--- NOTE | 2019-02-07 12:27 | CP.PCM.PN ---
<Reji Nguyen - Last Filed: 02/07/19 12:23> Subjective - Date & Time of Evaluation Date of Evaluation: 02/07/19 Time of Evaluation: 08:00 - Subjective Subjective: Reji Nguyen PGY-1 Progress Note for Hospitalist Service Patient seen and evaluated at bedside. No acute events reported overnight. Patient denies fevers and chills. Patient tolerating diet and is passing bowel movements without pain. Objective - Vital Signs/Intake and Output Vital Signs (last 24 hours): Temp Pulse Resp BP Pulse Ox 98 F 70 18 129/80 100 02/07/19 06:00 02/07/19 06:00 02/07/19 06:00 02/07/19 06:00 02/07/19 06:00 Intake and Output: 02/07/19 02/07/19 06:59 18:59 Intake Total 240 Balance 240 - Medications Medications: Current Medications Acetaminophen (Tylenol 325mg Tab) 650 mg PO Q6H PRN PRN Reason: Pain, Mild (1-3) Home Med (Home Med) 1 unit PO DAILY KRISTYN Last Admin: 02/06/19 11:13 Dose: 1 unit Meropenem (Merrem Iv 1 Gm Premix) 1 gm in 50 mls @ 100 mls/hr IVPB Q8 KRISTYN; Protocol Stop: 02/15/19 17:50 Last Admin: 02/07/19 06:04 Dose: 100 mls/hr Vancomycin HCl (Vancomycin 1gm) 1 gm in 250 mls @ 167 mls/hr IVPB Q12H KRISTYN; Protocol Stop: 02/15/19 18:01 Last Admin: 02/07/19 06:05 Dose: 167 mls/hr Acyclovir 500 mg/ Sodium (Chloride) 100 mls @ 100 mls/hr IV Q8 K[facility]ST[facility]; Protocol Stop: 02/13/19 22:01 Last Admin: 02/07/19 06:04 Dose: 100 mls/hr Morphine Sulfate (Morphine) 2 mg IVP Q4H PRN PRN Reason: Pain, severe (8-10) Last Admin: 02/07/19 09:29 Dose: 2 mg Dolutegravir Sodium ([Tivicay] (Home Med)) 1 tab PO DAILY KRISTYN Last Admin: 02/07/19 10:40 Dose: Not Given Oxycodone/Acetaminophen (Percocet 5/325 Mg Tab) 1 tab PO Q4H PRN PRN Reason: Pain, moderate (4-7) Stop: 02/09/19 02:46 Pantoprazole Sodium (Protonix Ec Tab) 40 mg PO 0600 KRISTYN Last Admin: 02/07/19 06:05 Dose: 40 mg - Labs Labs: 02/07/19 06:00 02/07/19 06:00 - Additional Findings Additional findings: - Constitutional Appears: Non-toxic, No Acute Distress Additional comments: appears uncomfortable, has to stay on L side because of rectal pain - Head Exam Head Exam: ATRAUMATIC, NORMOCEPHALIC - Eye Exam Eye Exam: EOMI, PERRL - ENT Exam ENT Exam: Mucous Membranes Moist - Neck Exam Neck exam: Positive for: Full Rom, Normal Inspection - Respiratory Exam Respiratory Exam: Clear to Auscultation Bilateral, NORMAL BREATHING PATTERN. absent: Accessory Muscle Use, Rales, Rhonchi, Wheezes, Respiratory Distress - Cardiovascular Exam Cardiovascular Exam: REGULAR RHYTHM, RRR, +S1, +S2. absent: Diastolic murmur, Gallop, Rubs, Systolic Murmur - GI/Abdominal Exam GI & Abdominal Exam: Normal Bowel Sounds, Soft. absent: Guarding, Rebound, Tenderness - Rectal Exam Rectal Exam: absent: Black Stool, Bloody Stool, Hemorrhoids, Fecal Impaction Additional comments: dressing c/d/i, no further fluctuance on the inferomedial aspect to the right gluteal area - Exam Exam: NORMAL INSPECTION. absent: Scrotal Swelling, Uretheral Discharge - Extremities Exam Extremities exam: Positive for: full ROM, normal inspection. Negative for: pedal edema - Back Exam Back exam: NORMAL INSPECTION - Neurological Exam Neurological exam: Alert, Oriented x3 - Psychiatric Exam Psychiatric exam: Normal Affect, Normal Mood - Skin Skin Exam: Dry, Intact, Warm Assessment and Plan - Assessment and Plan (Free Text) Assessment: 28 yo M with PMH of HIV (on HAART but intermittently non-compliant), HPV (s/p anal lesion resection), and asthma admitted for surgical management of tej- rectal abscess and necessary IV abx. Plan: R Gluteal Erythema/Flutuance 2/2 perirectal abscess -POD#1 s/p bedside I & D, pain improved, controlled on Percocet. Morphine discontinued -afebrile, no leukocytosis -Tolerating diet -Warm compresses to area q2h while awake -Continue Vanc, Merrem day 2 -Acyclovir for prophylaxis -Wound cx growing coagulase negative staph, f/u final read for sensitivities -F/u blood, urine cx results -May continue tylenol PRN mild pain and percocet PRN severe pain -IVF discontinued -ID consult placed, surgery team following, all recs appreciated - f/u RPR and HIV -F/u viral load, CD4/CD8 counts -C/w HAART as previously prescribed -F/u additional ID recs -SW consult for outpatient f/u resources Non-compliance -SW consult placed for outpatient HIV treatment resources -Continue to stress importance of compliance with HAART medications with patient Substance Abuse -UDS pending -F/u additional SW recs DVT/GI PPX: SCD/protonix Full Code Monitor on med/surg Patient seen, case reviewed and plan approved by Dr. Hooks. Reji Nguyen, PGY-1 <Marco Hooks A - Last Filed: 02/07/19 13:50> Objective - Vital Signs/Intake and Output Vital Signs (last 24 hours): Temp Pulse Resp BP Pulse Ox 98 F 70 18 129/80 100 02/07/19 06:00 02/07/19 06:00 02/07/19 06:00 02/07/19 06:00 02/07/19 06:00 Intake and Output: 02/07/19 02/07/19 06:59 18:59 Intake Total 240 Balance 240 - Medications Medications: Current Medications Acetaminophen (Tylenol 325mg Tab) 650 mg PO Q6H PRN PRN Reason: Pain, Mild (1-3) Home Med (Home Med) 1 unit PO DAILY KRISTYN Last Admin: 02/06/19 11:13 Dose: 1 unit Meropenem (Merrem Iv 1 Gm Premix) 1 gm in 50 mls @ 100 mls/hr IVPB Q8 KRISTYN; Protocol Stop: 02/15/19 17:50 Last Admin: 02/07/19 06:04 Dose: 100 mls/hr Vancomycin HCl (Vancomycin 1gm) 1 gm in 250 mls @ 167 mls/hr IVPB Q12H KRISTYN; Protocol Stop: 02/15/19 18:01 Last Admin: 02/07/19 06:05 Dose: 167 mls/hr Acyclovir 500 mg/ Sodium (Chloride) 100 mls @ 100 mls/hr IV Q8 [facility]; Protocol Stop: 02/13/19 22:01 Last Admin: 02/07/19 06:04 Dose: 100 mls/hr Dolutegravir Sodium ([Tivicay] (Home Med)) 1 tab PO DAILY [facility] Last Admin: 02/07/19 10:40 Dose: Not Given Oxycodone/Acetaminophen (Percocet 5/325 Mg Tab) 1 tab PO Q4H PRN PRN Reason: Pain, moderate (4-7) Stop: 02/09/19 02:46 Pantoprazole Sodium (Protonix Ec Tab) 40 mg PO 0600 [facility] Last Admin: 02/07/19 06:05 Dose: 40 mg - Labs Labs: 02/07/19 06:00 02/07/19 06:00 Attending/Attestation - Attestation I have personally seen and examined this patient.: Yes I have fully participated in the care of the patient.: Yes I have reviewed all pertinent clinical information, including history, physical exam and plan: Yes Notes (Text): 02/07/19 13:43 28 year old male with past medical history of HIV (history of medication non compliance), HPV (s/p anal lesion resection), and asthma who presented with perirectal abscess. He is s/p I&D POD #1. Continue with iv antibiotics while awaiting cultures. Patient is currently on vancomycin, meropenem and acyclovir. Wound culture is pending so far growing coag negative staph. Continue with wound care and packing changes as per surgery. Medication compliance and outpatient follow up was discussed with patient. Marco Hooks MD Hospitalist.
[2019-02-07] MEDS: Oxycodone/Acetaminophen 5/325 mg Tab PO PRN ×2 (16:33→21:05)
--- NOTE | 2019-02-07 16:46 | CP.PCM.PN ---
<Elroy Pandya - Last Filed: 02/07/19 16:43> Subjective - Date & Time of Evaluation Date of Evaluation: 02/07/19 Time of Evaluation: 08:30 - Subjective Subjective: Elroy Pandya D.O. PGY-3, Internal Medicine Resident, Infectious Disease Progress Note 28 year old male with a PMH of HIV on ART with questionable compliance and asthma who presented to [facility] with concerns of perirectal pain and swelling. Infec tious disease consultation was requested for possible abscess. Patient was seen and examined at bedside. States overall feeling better. Able to ambulate without pain now. Eager to be discharged. Objective - Vital Signs/Intake and Output Vital Signs (last 24 hours): Temp Pulse Resp BP Pulse Ox 98 F 70 18 129/80 100 02/07/19 06:00 02/07/19 06:00 02/07/19 06:00 02/07/19 06:00 02/07/19 06:00 Intake and Output: 02/07/19 02/07/19 06:59 18:59 Intake Total 240 Balance 240 - Medications Medications: Current Medications Acetaminophen (Tylenol 325mg Tab) 650 mg PO Q6H PRN PRN Reason: Pain, Mild (1-3) Home Med (Home Med) 1 unit PO DAILY KRISTYN Last Admin: 02/07/19 10:00 Dose: 1 unit Meropenem (Merrem Iv 1 Gm Premix) 1 gm in 50 mls @ 100 mls/hr IVPB Q8 KRISTYN; Protocol Stop: 02/15/19 17:50 Last Admin: 02/07/19 13:56 Dose: 100 mls/hr Vancomycin HCl (Vancomycin 1gm) 1 gm in 250 mls @ 167 mls/hr IVPB Q12H KRISTYN; Protocol Stop: 02/15/19 18:01 Last Admin: 02/07/19 06:05 Dose: 167 mls/hr Acyclovir 500 mg/ Sodium (Chloride) 100 mls @ 100 mls/hr IV Q8 KRISTYN; Protocol Stop: 02/13/19 22:01 Last Admin: 02/07/19 14:00 Dose: 100 mls/hr Dolutegravir Sodium ([Tivicay] (Home Med)) 1 tab PO DAILY KRISTYN Last Admin: 02/07/19 10:40 Dose: Not Given Oxycodone/Acetaminophen (Percocet 5/325 Mg Tab) 1 tab PO Q4H PRN PRN Reason: Pain, moderate (4-7) Stop: 02/09/19 02:46 Last Admin: 02/07/19 16:33 Dose: 1 tab Pantoprazole Sodium (Protonix Ec Tab) 40 mg PO 0600 KRISTYN Last Admin: 02/07/19 06:05 Dose: 40 mg - Labs Labs: 02/07/19 06:00 02/07/19 06:00 - Constitutional Appears: Non-toxic, No Acute Distress - Head Exam Head Exam: ATRAUMATIC, NORMOCEPHALIC - Eye Exam Eye Exam: EOMI. absent: Scleral icterus - ENT Exam ENT Exam: Mucous Membranes Moist, Normal Oropharynx - Neck Exam Neck exam: Positive for: Normal Inspection - Respiratory Exam Respiratory Exam: Clear to Auscultation Bilateral. absent: Rhonchi, Wheezes - Cardiovascular Exam Cardiovascular Exam: RRR, +S1, +S2. absent: Gallop, Rubs - GI/Abdominal Exam GI & Abdominal Exam: Normal Bowel Sounds, Soft. absent: Tenderness - Rectal Exam Additional comments: R buttock s/p I&D by surgery - Extremities Exam Extremities exam: Negative for: calf tenderness, pedal edema - Neurological Exam Neurological exam: Alert, CN II-XII Intact, Oriented x3 - Skin Skin Exam: Dry, Warm Assessment and Plan - Assessment and Plan (Free Text) Assessment: 28 year old male with a PMH of HIV on ART with questionable compliance and ast hma who presented to [facility] with concerns of perirectal pain and swelling. Infectious disease consultation was requested for possible abscess. Plan: Sepsis with tachycardia and leukocytosis likely from right upper thigh/lower glute abscess HIV on HAART with questionable compliance S/p I&D, feeling better On acyclovir/merrem/vanco BCx 2/2 negative day 1 Pending wound cultures HIV viral load and CD4 count pending When ready for DC can go with acyclovir PO and avalox Will follow with you Patient was seen and examined and case will be discussed with attending physician Thank you for the pleasure participating in the care of this interesting patient <Michael Hinton - Last Filed: 02/07/19 20:50> Objective - Vital Signs/Intake and Output Vital Signs (last 24 hours): Temp Pulse Resp BP Pulse Ox 98 F 70 18 129/80 100 03/20/19 06:00 02/07/19 06:00 02/07/19 06:00 02/07/19 06:00 02/07/19 06:00 - Medications Medications: Current Medications Acetaminophen (Tylenol 325mg Tab) 650 mg PO Q6H PRN PRN Reason: Pain, Mild (1-3) Home Med (Home Med) 1 unit PO DAILY KRISTYN Last Admin: 02/07/19 10:00 Dose: 1 unit Meropenem (Merrem Iv 1 Gm Premix) 1 gm in 50 mls @ 100 mls/hr IVPB Q8 KRISTYN; Protocol Stop: 02/15/19 17:50 Last Admin: 02/07/19 13:56 Dose: 100 mls/hr Vancomycin HCl (Vancomycin 1gm) 1 gm in 250 mls @ 167 mls/hr IVPB Q12H KRISTYN; Protocol Stop: 02/15/19 18:01 Last Admin: 02/07/19 17:25 Dose: 167 mls/hr Acyclovir 500 mg/ Sodium (Chloride) 100 mls @ 100 mls/hr IV Q8 KRISTYN; Protocol Stop: 02/13/19 22:01 Last Admin: 02/07/19 14:00 Dose: 100 mls/hr Dolutegravir Sodium ([Tivicay] (Home Med)) 1 tab PO DAILY KRISTYN Last Admin: 02/07/19 10:40 Dose: Not Given Oxycodone/Acetaminophen (Percocet 5/325 Mg Tab) 1 tab PO Q4H PRN PRN Reason: Pain, moderate (4-7) Stop: 02/09/19 02:46 Last Admin: 02/07/19 16:33 Dose: 1 tab Pantoprazole Sodium (Protonix Ec Tab) 40 mg PO 0600 KRISTYN Last Admin: 02/07/19 06:05 Dose: 40 mg - Labs Labs: 02/07/19 06:00 02/07/19 06:00 Attending/Attestation - Attestation I have personally seen and examined this patient.: Yes I have fully participated in the care of the patient.: Yes I have reviewed all pertinent clinical information, including history, physical exam and plan: Yes
[2019-02-07 22:09] VITALS: RESP 20
[2019-02-08] MEDS: Pantoprazole 40 mg EC Tab PO SCH (05:17)
[2019-02-08] MEDS: Meropenem IV 1 gm in NS 1 GM/50 ML BAG IVPB SCH ×2 (05:17→13:10)
[2019-02-08] MEDS: Acyclovir 500 MG in Sodium Chloride 0.9% 100 ML IV SCH ×2 (05:17→13:12)
[2019-02-08] MEDS: Vancomycin 1gm in NS 250ml 1 GM/250 ML BAG IVPB SCH (07:44)
--- NOTE | 2019-02-08 07:57 | CP.PCM.PN ---
Subjective - Date & Time of Evaluation Date of Evaluation: 02/08/19 Time of Evaluation: 07:53 - Subjective Subjective: General Surgery progress note for Dr. Rasheed Patient seen and examined this am at bedside. No acute events overnight afebrile. Packing removed and dressing changed at bedside, drainage site clean and open with no purulent drainage expressed. Patient has no complaints at this time an denies COLVIN, CP, SOB, abdominal pain, n/v, f/c, extremity pain/weakness. Objective - Vital Signs/Intake and Output Vital Signs (last 24 hours): Temp Pulse Resp BP Pulse Ox 98 F 87 20 151/91 H 98 02/07/19 22:07 02/07/19 22:07 02/07/19 22:07 02/07/19 22:07 02/07/19 22:07 Intake and Output: 02/08/19 02/08/19 06:59 18:59 Intake Total 620 Balance 620 - Medications Medications: Current Medications Acetaminophen (Tylenol 325mg Tab) 650 mg PO Q6H PRN PRN Reason: Pain, Mild (1-3) Home Med (Home Med) 1 unit PO DAILY KRISTYN Last Admin: 02/07/19 10:00 Dose: 1 unit Meropenem (Merrem Iv 1 Gm Premix) 1 gm in 50 mls @ 100 mls/hr IVPB Q8 KRISTYN; Protocol Stop: 02/15/19 17:50 Last Admin: 02/08/19 05:17 Dose: 100 mls/hr Vancomycin HCl (Vancomycin 1gm) 1 gm in 250 mls @ 167 mls/hr IVPB Q12H KRISTYN; Protocol Stop: 02/15/19 18:01 Last Admin: 02/08/19 07:44 Dose: 167 mls/hr Acyclovir 500 mg/ Sodium (Chloride) 100 mls @ 100 mls/hr IV Q8 KRISTYN; Protocol Stop: 02/13/19 22:01 Last Admin: 02/08/19 05:17 Dose: 100 mls/hr Dolutegravir Sodium ([Tivicay] (Home Med)) 1 tab PO DAILY KRISTYN Last Admin: 02/07/19 10:40 Dose: Not Given Oxycodone/Acetaminophen (Percocet 5/325 Mg Tab) 1 tab PO Q4H PRN PRN Reason: Pain, moderate (4-7) Stop: 02/09/19 02:46 Last Admin: 02/07/19 21:05 Dose: 1 tab Pantoprazole Sodium (Protonix Ec Tab) 40 mg PO 0600 KRISTYN Last Admin: 02/08/19 05:17 Dose: 40 mg - Labs Labs: 02/07/19 06:00 02/07/19 06:00 - Constitutional Appears: Well, Non-toxic, No Acute Distress - Head Exam Head Exam: ATRAUMATIC - Eye Exam Eye Exam: EOMI - ENT Exam ENT Exam: Mucous Membranes Moist - Respiratory Exam Respiratory Exam: NORMAL BREATHING PATTERN - Cardiovascular Exam Cardiovascular Exam: REGULAR RHYTHM - GI/Abdominal Exam GI & Abdominal Exam: Soft. absent: Guarding, Tenderness - Extremities Exam Extremities Exam: absent: Calf Tenderness, Pedal Edema - Back Exam Additional comments: inferior medial gluteal drainage site clean, without purulent discharge, packing removed and clean dressing placed - Neurological Exam Neurological Exam: Alert, Awake, Oriented x3 - Psychiatric Exam Psychiatric exam: Normal Affect, Normal Mood - Skin Skin Exam: Dry, Normal Color, Warm Assessment and Plan - Assessment and Plan (Free Text) Assessment: 28 yr old male PMH HIV and anal HPV/Herpes s/p inferior gluteal abscess drainage POD 2 Plan: - packing changes no longer needed packing removed - continue abx as per ID recommendations - encourage OOB and ambulation - dressing can be changed as needed - patient counseled about personal hygiene and prevention of future abscesses and reinfection - will discuss with Dr. Wili Davis, PGY 1
[2019-02-08 08:13] LABS: BASO # 0.03 K/mm3 (0.0-2.0); BASO % 0.5 % (0.0-3.0); EOS # 0.4 (0.0-0.7); EOS % 6.3 % (1.5-5.0); HEMOGLOBIN 12.8 g/dL (14.0-18.0); LYMPH # 2.1 (1.2-3.4); LYMPH % 31.4 % (22.0-35.0); MEAN CELL VOLUME 77.2 fl (80.0-105.0); MEAN CORPUSCULAR HEMOGLOBIN 26.6 pg (25.0-35.0); MEAN CORPUSCULAR HGB CONC 34.4 g/dl (31.0-37.0); MEAN PLATELET VOLUME 10.1 fl (7.0-11.0); MONO # 0.6 (0.1-0.6); MONO % 9.3 % (1.0-6.0); RBC 4.82 10^6/uL (3.5-6.1); RED CELL DISTRIBUTION WIDTH 13.6 % (11.5-14.5); WHITE BLOOD COUNT 6.7 10^3/uL (4.5-11.0)
[2019-02-08 08:39] LABS: ALBUMIN 3.7 g/dL (3.0-4.8); ALT/SGPT 36 U/L (7-56); AST/SGOT 34 U/L (17-59); BLOOD UREA NITROGEN 10 mg/dL (7-21); CALCIUM 9.1 mg/dL (8.4-10.5); GFR NON-AFRICAN AMERICAN > 60
[2019-02-08 08:44] VITALS: BP 152/93; PULSE 75; O2SAT 99
[2019-02-08] MEDS: EMTRICITABINE PO SCH (10:08)
[2019-02-08] MEDS: TENOFOV ALAFENAM PO SCH (10:08)
[2019-02-08] MEDS: Oxycodone/Acetaminophen 5/325 mg Tab PO PRN (10:09)
[2019-02-08] MEDS: DOLUTEGRAVIR SODIUM PO SCH (10:19)
--- NOTE | 2019-02-08 12:29 | CP.PCM.DIS ---
<ShlomoReji jack - Last Filed: 02/08/19 13:31> Provider - Provider Date of Admission: 02/06/19 02:27 Attending physician: Keri Downey MD Primary care physician: Dr. Barajas at [facility] Consults: 02/05/19 22:39 Consult [Physician Consult] Stat Comment: Consulting Provider: Roel Rasheed Consulting Physician: Roel Rasheed Reason for Consult: tej-rectal vs tej-anal abscess 02/06/19 02:08 Infectious Disease Consult Routine Comment: Consulting Provider: Michael Hinton Consulting Physician: Michael Hinton Reason for Consult: tej-rectal abscess, hx HIV Time Spent in preparation of Discharge (in minutes): 40 Hospital Course - Lab Results Lab Results: Micro Results 02/06/19 11:15 Abscess - Bottom Gram Stain - Final 02/06/19 11:15 Abscess - Bottom Wound Culture - Final Coagulase Neg Staphylococcus Corynebacterium Species 02/05/19 23:20 Blood Blood Culture - Preliminary NO GROWTH AFTER 48 HOURS 02/05/19 22:50 Blood Blood Culture - Preliminary NO GROWTH AFTER 48 HOURS Most Recent Lab Values WBC 6.7 10^3/uL (4.5-11.0) D 02/08/19 07:00 RBC 4.82 10^6/uL (3.5-6.1) 02/08/19 07:00 Hgb 12.8 g/dL (14.0-18.0) L 02/08/19 07:00 Hct 37.2 % (42.0-52.0) L 02/08/19 07:00 MCV 77.2 fl (80.0-105.0) L 02/08/19 07:00 MCH 26.6 pg (25.0-35.0) 02/08/19 07:00 MCHC 34.4 g/dl (31.0-37.0) 02/08/19 07:00 RDW 13.6 % (11.5-14.5) 02/08/19 07:00 Plt Count 272 10^3/uL (120.0-450.0) 02/08/19 07:00 MPV 10.1 fl (7.0-11.0) 02/08/19 07:00 Neut % (Auto) 52.5 % (50.0-68.0) 02/08/19 07:00 Lymph % (Auto) 31.4 % (22.0-35.0) 02/08/19 07:00 [place] % (Auto) 9.3 % (1.0-6.0) H 02/08/19 07:00 Eos % (Auto) 6.3 % (1.5-5.0) H 02/08/19 07:00 Baso % (Auto) 0.5 % (0.0-3.0) 02/08/19 07:00 Lymph # (Auto) 2.1 (1.2-3.4) 02/08/19 07:00 [place] # (Auto) 0.6 (0.1-0.6) 02/08/19 07:00 Eos # (Auto) 0.4 (0.0-0.7) 02/08/19 07:00 Baso # (Auto) 0.03 K/mm3 (0.0-2.0) 02/08/19 07:00 Absolute Neuts (auto) 3.49 (1.4-6.5) 02/08/19 07:00 Sodium 142 mmol/L (132-148) 02/08/19 07:00 Potassium 3.8 mmol/L (3.6-5.0) 02/08/19 07:00 Chloride 104 mmol/L (98-107) 02/08/19 07:00 Carbon Dioxide 33 mmol/L (21-33) 02/08/19 07:00 Anion Gap 9 (10-20) L 02/08/19 07:00 BUN 10 mg/dL (7-21) 02/08/19 07:00 Creatinine 0.9 mg/dl (0.8-1.5) 02/08/19 07:00 Est GFR ( Amer) > 60 02/08/19 07:00 Est GFR (Non-Af Amer) > 60 02/08/19 07:00 Random Glucose 86 mg/dL (70-110) 02/08/19 07:00 Calcium 9.1 mg/dL (8.4-10.5) 02/08/19 07:00 Phosphorus 3.2 mg/dL (2.5-4.5) 02/05/19 22:50 Magnesium 2.0 mg/dL (1.7-2.2) 02/05/19 22:50 Total Bilirubin 0.3 mg/dL (0.2-1.3) 02/08/19 07:00 AST 34 U/L (17-59) 02/08/19 07:00 ALT 36 U/L (7-56) 02/08/19 07:00 Alkaline Phosphatase 87 U/L (38-126) 02/08/19 07:00 Total Protein 7.5 g/dL (5.8-8.3) 02/08/19 07:00 Albumin 3.7 g/dL (3.0-4.8) 02/08/19 07:00 Globulin 3.7 gm/dL 02/08/19 07:00 Albumin/Globulin Ratio 1.0 (1.1-1.8) L 02/08/19 07:00 Triglycerides 55 mg/dL (35-160) 02/06/19 07:00 Cholesterol 107 mg/dL (130-200) L 02/06/19 07:00 LDL Cholesterol Direct 62 mg/dL (0-129) 02/06/19 07:00 HDL Cholesterol 26 mg/dL (29-60) L 02/06/19 07:00 Urine Color Yellow (YELLOW) 02/06/19 02:40 Urine Appearance Clear (CLEAR) 02/06/19 02:40 Urine pH 7.0 (4.7-8.0) 02/06/19 02:40 Ur Specific [place] 1.015 (1.005-1.035) 02/06/19 02:40 Urine Protein Trace mg/dL (<30 mg/dL) H 02/06/19 02:40 Urine Glucose (UA) Negative mg/dL (NEGATIVE) 02/06/19 02:40 Urine Ketones 15 mg/dL (NEGATIVE) H 02/06/19 02:40 Urine Blood Negative (NEGATIVE) 02/06/19 02:40 Urine Nitrate Negative (NEGATIVE) 02/06/19 02:40 Urine Bilirubin Negative (NEGATIVE) 02/06/19 02:40 Urine Urobilinogen 1.0 E.U./dL (<1 E.U./dL) H 02/06/19 02:40 Ur Leukocyte Esterase Negative Maddie/uL (NEGATIVE) 02/06/19 02:40 Urine RBC 1 - 3 /hpf (0-2) H 02/06/19 02:40 Urine WBC 1 - 3 /hpf (0-6) 02/06/19 02:40 Ur Epithelial Cells 1 - 3 /hpf (0-5) 02/06/19 02:40 Urine Bacteria Rare /hpf (NONE) 02/06/19 02:40 Urine Opiates Screen Negative (NEGATIVE) 02/06/19 02:40 Urine Methadone Screen Negative (NEGATIVE) 02/06/19 02:40 Ur Barbiturates Screen Negative (NEGATIVE) 02/06/19 02:40 Ur Phencyclidine Scrn Negative (NEGATIVE) 02/06/19 02:40 Ur Amphetamines Screen Positive (NEGATIVE) H 02/06/19 02:40 U Benzodiazepines Scrn Negative (NEGATIVE) 02/06/19 02:40 U Oth Cocaine Metabols Negative (NEGATIVE) 02/06/19 02:40 U Cannabinoids Screen Positive (NEGATIVE) H 02/06/19 02:40 RPR Nonreactive (NONREACTIVE) 02/07/19 06:00 - Hospital Course Hospital Course: Reji Nguyen, PGY-1 Discharge Summary for Hospitalist Service 28 year old male with past medical history of HIV (history of medication noncompliance), HPV (s/p anal lesion resection), and asthma who presented with perirectal abscess. Surgery was consulted - Dr. Montes. Patient received a bedside incision and drainage. Patient was started on IV antibiotics while awaiting cultures. Patient was placed on broad spectrum antibiotic coverage with vancomycin, meropenem and acyclovir. Wound culture grew coag negative staph and cornybacterium, which was found to be contaminants and normal skin peter per microbiology lab. Surgery subsequently removed packing and was educated regarding keeping site clean and changing guaze and tape daily. Patient states there is minor discomfort at the site but denies fevers, chills and there is no leukocytosis. Slightly elevated blood pressure readings were likely due to pain response, but patient was urged to follow up with his outpatient doctor for it. On day of discharge, patient denies fevers, chills, was tolerating diet, was able to ambulate and use the bathroom without difficulty. Patient was urged to follow up with his comprehensive health clinic and with the surgeon. Patient was educated regarding dressing changes. Patient was educated regarding his Acyclovir and Moxifloxacin in addition to being compliant with his HAART therapy. Medication compliance and outpatient follow up was discussed with patient at length. Patient demonstrated understanding and was told to maintain hygiene and perform safe sexual practices. Patient seen, case reviewed and plan approved by Dr. Downey. Reji Nguyen, PGY-1 Discharge Exam - Additional Findings Additional findings: - Constitutional Appears: Non-toxic, No Acute Distress, appears comfortable - Head Exam Head Exam: ATRAUMATIC, NORMOCEPHALIC - Eye Exam Eye Exam: EOMI, PERRL - ENT Exam ENT Exam: Mucous Membranes Moist - Neck Exam Neck exam: Positive for: Full Rom, Normal Inspection - Respiratory Exam Respiratory Exam: Clear to Auscultation Bilateral, NORMAL BREATHING PATTERN. ab sent: Accessory Muscle Use, Rales, Rhonchi, Wheezes, Respiratory Distress - Cardiovascular Exam Cardiovascular Exam: REGULAR RHYTHM, RRR, +S1, +S2. absent: Diastolic murmur, Gallop, Rubs, Systolic Murmur - GI/Abdominal Exam GI & Abdominal Exam: Normal Bowel Sounds, Soft. absent: Guarding, Rebound, Tenderness - Rectal Exam Rectal Exam: absent: Black Stool, Bloody Stool, Hemorrhoids, Fecal Impaction Additional comments: dressing c/d/i, no further fluctuance on the inferomedial aspect to the right gluteal area - Exam Exam: NORMAL INSPECTION. absent: Scrotal Swelling, Uretheral Discharge - Extremities Exam Extremities exam: Positive for: full ROM, normal inspection. Negative for: pedal edema - Back Exam Back exam: NORMAL INSPECTION - Neurological Exam Neurological exam: Alert, Oriented x3 - Psychiatric Exam Psychiatric exam: Normal Affect, Normal Mood - Skin Skin Exam: Dry, Intact, Warm Discharge Plan - Discharge Medications Prescriptions: Acyclovir 400 mg PO DAILY #30 tablet Moxifloxacin HCl 400 mg PO DAILY #7 tablet - Follow Up Plan Condition: FAIR Disposition: HOME/ ROUTINE Instructions: Wound Care (DC), Anal Abscess and Fistula (DC), Why Vaccines Are Important for Everyone, Wound Incision and Drainage (DC) Additional Instructions: Please follow up with Dr. Barajas in the comprehensive clinic you attend. Keep wound clean. Change dressing and tape daily. Please follow up with Dr. Montes in his office within one week. Please continue taking Acyclovir and Moxifloxacin, and please continue taking your HAART therapy every single day in order to avoid resistance. Should symptoms worsen or reoccur, please visit nearest emergency department. Referrals: Michael Hinton MD [Staff Provider] - Roel Rasheed MD [Medical Doctor] - <Keri Downey - Last Filed: 02/08/19 17:37> Provider - Provider Date of Admission: 02/06/19 02:27 Attending physician: Keri Downey MD Consults: 02/05/19 22:39 Consult [Physician Consult] Stat Comment: Consulting Provider: Roel Rasheed Consulting Physician: Roel Rasheed Reason for Consult: tej-rectal vs tej-anal abscess 02/06/19 02:08 Infectious Disease Consult Routine Comment: Consulting Provider: Michael Hinton Consulting Physician: Michael Hinton Reason for Consult: tej-rectal abscess, hx HIV Hospital Course - Lab Results Lab Results: Micro Results 02/06/19 11:15 Abscess - Bottom Gram Stain - Final 02/06/19 11:15 Abscess - Bottom Wound Culture - Final Coagulase Neg Staphylococcus Corynebacterium Species 02/05/19 23:20 Blood Blood Culture - Preliminary NO GROWTH AFTER 48 HOURS 02/05/19 22:50 Blood Blood Culture - Preliminary NO GROWTH AFTER 48 HOURS Most Recent Lab Values WBC 6.7 10^3/uL (4.5-11.0) D 02/08/19 07:00 RBC 4.82 10^6/uL (3.5-6.1) 02/08/19 07:00 Hgb 12.8 g/dL (14.0-18.0) L 02/08/19 07:00 Hct 37.2 % (42.0-52.0) L 02/08/19 07:00 MCV 77.2 fl (80.0-105.0) L 02/08/19 07:00 MCH 26.6 pg (25.0-35.0) 02/08/19 07:00 MCHC 34.4 g/dl (31.0-37.0) 02/08/19 07:00 RDW 13.6 % (11.5-14.5) 02/08/19 07:00 Plt Count 272 10^3/uL (120.0-450.0) 02/08/19 07:00 MPV 10.1 fl (7.0-11.0) 02/08/19 07:00 Neut % (Auto) 52.5 % (50.0-68.0) 02/08/19 07:00 Lymph % (Auto) 31.4 % (22.0-35.0) 02/08/19 07:00 [place] % (Auto) 9.3 % (1.0-6.0) H 02/08/19 07:00 Eos % (Auto) 6.3 % (1.5-5.0) H 02/08/19 07:00 Baso % (Auto) 0.5 % (0.0-3.0) 02/08/19 07:00 Lymph # (Auto) 2.1 (1.2-3.4) 02/08/19 07:00 [place] # (Auto) 0.6 (0.1-0.6) 02/08/19 07:00 Eos # (Auto) 0.4 (0.0-0.7) 02/08/19 07:00 Baso # (Auto) 0.03 K/mm3 (0.0-2.0) 02/08/19 07:00 Absolute Neuts (auto) 3.49 (1.4-6.5) 02/08/19 07:00 Sodium 142 mmol/L (132-148) 02/08/19 07:00 Potassium 3.8 mmol/L (3.6-5.0) 02/08/19 07:00 Chloride 104 mmol/L (98-107) 02/08/19 07:00 Carbon Dioxide 33 mmol/L (21-33) 02/08/19 07:00 Anion Gap 9 (10-20) L 02/08/19 07:00 BUN 10 mg/dL (7-21) 02/08/19 07:00 Creatinine 0.9 mg/dl (0.8-1.5) 02/08/19 07:00 Est GFR ( Amer) > 60 02/08/19 07:00 Est GFR (Non-Af Amer) > 60 02/08/19 07:00 Random Glucose 86 mg/dL (70-110) 02/08/19 07:00 Calcium 9.1 mg/dL (8.4-10.5) 02/08/19 07:00 Phosphorus 3.2 mg/dL (2.5-4.5) 02/05/19 22:50 Magnesium 2.0 mg/dL (1.7-2.2) 02/05/19 22:50 Total Bilirubin 0.3 mg/dL (0.2-1.3) 02/08/19 07:00 AST 34 U/L (17-59) 02/08/19 07:00 ALT 36 U/L (7-56) 02/08/19 07:00 Alkaline Phosphatase 87 U/L (38-126) 02/08/19 07:00 Total Protein 7.5 g/dL (5.8-8.3) 02/08/19 07:00 Albumin 3.7 g/dL (3.0-4.8) 02/08/19 07:00 Globulin 3.7 gm/dL 02/08/19 07:00 Albumin/Globulin Ratio 1.0 (1.1-1.8) L 02/08/19 07:00 Triglycerides 55 mg/dL (35-160) 02/06/19 07:00 Cholesterol 107 mg/dL (130-200) L 02/06/19 07:00 LDL Cholesterol Direct 62 mg/dL (0-129) 02/06/19 07:00 HDL Cholesterol 26 mg/dL (29-60) L 02/06/19 07:00 Urine Color Yellow (YELLOW) 02/06/19 02:40 Urine Appearance Clear (CLEAR) 02/06/19 02:40 Urine pH 7.0 (4.7-8.0) 02/06/19 02:40 Ur Specific [place] 1.015 (1.005-1.035) 02/06/19 02:40 Urine Protein Trace mg/dL (<30 mg/dL) H 02/06/19 02:40 Urine Glucose (UA) Negative mg/dL (NEGATIVE) 02/06/19 02:40 Urine Ketones 15 mg/dL (NEGATIVE) H 02/06/19 02:40 Urine Blood Negative (NEGATIVE) 02/06/19 02:40 Urine Nitrate Negative (NEGATIVE) 02/06/19 02:40 Urine Bilirubin Negative (NEGATIVE) 02/06/19 02:40 Urine Urobilinogen 1.0 E.U./dL (<1 E.U./dL) H 02/06/19 02:40 Ur Leukocyte Esterase Negative Maddie/uL (NEGATIVE) 02/06/19 02:40 Urine RBC 1 - 3 /hpf (0-2) H 02/06/19 02:40 Urine WBC 1 - 3 /hpf (0-6) 02/06/19 02:40 Ur Epithelial Cells 1 - 3 /hpf (0-5) 02/06/19 02:40 Urine Bacteria Rare /hpf (NONE) 02/06/19 02:40 Urine Opiates Screen Negative (NEGATIVE) 02/06/19 02:40 Urine Methadone Screen Negative (NEGATIVE) 02/06/19 02:40 Ur Barbiturates Screen Negative (NEGATIVE) 02/06/19 02:40 Ur Phencyclidine Scrn Negative (NEGATIVE) 02/06/19 02:40 Ur Amphetamines Screen Positive (NEGATIVE) H 02/06/19 02:40 U Benzodiazepines Scrn Negative (NEGATIVE) 02/06/19 02:40 U Oth Cocaine Metabols Negative (NEGATIVE) 02/06/19 02:40 U Cannabinoids Screen Positive (NEGATIVE) H 02/06/19 02:40 RPR Nonreactive (NONREACTIVE) 02/07/19 06:00 T.pallidum Ab (FTA-ABS) Reactive (Nonreactive) H 02/07/19 06:00 Attending/Attestation - Attestation I have personally seen and examined this patient.: Yes I have fully participated in the care of the patient.: Yes I have reviewed all pertinent clinical information, including history, physical exam and plan: Yes Notes (Text): 02/08/19 17:32 Attending note ; Patient seen and examined with resident. Patient is alert and awake. Denies any fevers, chills. Dressing done by surgery today. Instructions given. Patient is a 28 year old male with past medical history of HIV (history of medication noncompliance), HPV (s/p anal lesion resection), and asthma who presented with perirectal abscess. He is s/p I&D POD #2. Treated with IV vancomycin, meropenem and acyclovir. Cultures positive for coagulase-negative staph and Corynebacterium. Will discharge home with Avelox And acyclovir. HIV; medication noncompliance insisted in detail. Wound care instructions given by surgery. Patient is advised to follow-up with comprehensive care with Dr. Barajas. Addendum; RPR is negative. Fluorescent treponemal antibodies positive. Will inform the patient. We will discussed with the patient about possibility of previously treated infection. 02/08/19 17:37
--- NOTE | 2019-02-08 15:59 | CP.PCM.PN ---
<Elroy Pandya - Last Filed: 02/08/19 15:57> Subjective - Date & Time of Evaluation Date of Evaluation: 02/08/19 Time of Evaluation: 10:10 - Subjective Subjective: Elroy Pandya D.O. PGY-3, Internal Medicine Resident, Infectious Disease Progress Note 28 year old male with a PMH of HIV on ART with questionable compliance and asthma who presented to [facility] with concerns of perirectal pain and swelling. Infec tious disease consultation was requested for possible abscess. Patient was seen and examined at bedside. Pain in buttock is much better. Able to ambulate. Eager to be WA'ed. Objective - Vital Signs/Intake and Output Vital Signs (last 24 hours): Temp Pulse Resp BP Pulse Ox 98 F 75 20 152/93 H 99 02/08/19 06:00 02/08/19 06:00 02/08/19 06:00 02/08/19 06:00 02/08/19 06:00 Intake and Output: 02/08/19 02/08/19 06:59 18:59 Intake Total 620 Balance 620 - Medications Medications: Current Medications Acetaminophen (Tylenol 325mg Tab) 650 mg PO Q6H PRN PRN Reason: Pain, Mild (1-3) Amlodipine Besylate (Norvasc) 2.5 mg PO DAILY KRISTYN Home Med (Home Med) 1 unit PO DAILY KRISTYN Last Admin: 02/08/19 10:08 Dose: 1 unit Meropenem (Merrem Iv 1 Gm Premix) 1 gm in 50 mls @ 100 mls/hr IVPB Q8 KRISTYN; Protocol Stop: 02/15/19 17:50 Last Admin: 02/08/19 13:10 Dose: 100 mls/hr Vancomycin HCl (Vancomycin 1gm) 1 gm in 250 mls @ 167 mls/hr IVPB Q12H KRISTYN; Protocol Stop: 02/15/19 18:01 Last Admin: 02/08/19 07:44 Dose: 167 mls/hr Acyclovir 500 mg/ Sodium (Chloride) 100 mls @ 100 mls/hr IV Q8 KRISTYN; Protocol Stop: 02/13/19 22:01 Last Admin: 02/08/19 13:12 Dose: 100 mls/hr Dolutegravir Sodium ([Tivicay] (Home Med)) 1 tab PO DAILY KRISTYN Last Admin: 02/08/19 10:19 Dose: Not Given Oxycodone/Acetaminophen (Percocet 5/325 Mg Tab) 1 tab PO Q4H PRN PRN Reason: Pain, moderate (4-7) Stop: 02/09/19 02:46 Last Admin: 02/08/19 10:09 Dose: 1 tab Pantoprazole Sodium (Protonix Ec Tab) 40 mg PO 0600 KRISTYN Last Admin: 02/08/19 05:17 Dose: 40 mg - Labs Labs: 02/08/19 07:00 02/08/19 07:00 - Constitutional Appears: Non-toxic, No Acute Distress - Head Exam Head Exam: ATRAUMATIC, NORMOCEPHALIC - Eye Exam Eye Exam: EOMI. absent: Scleral icterus - ENT Exam ENT Exam: Mucous Membranes Moist, Normal Oropharynx - Neck Exam Neck exam: Positive for: Normal Inspection - Respiratory Exam Respiratory Exam: Clear to Auscultation Bilateral. absent: Rhonchi, Wheezes - Cardiovascular Exam Cardiovascular Exam: RRR, +S1, +S2. absent: Gallop, Rubs - GI/Abdominal Exam GI & Abdominal Exam: Normal Bowel Sounds, Soft. absent: Tenderness - Rectal Exam Additional comments: R buttock s/p I&D by surgery - Extremities Exam Extremities exam: Negative for: calf tenderness, pedal edema - Neurological Exam Neurological exam: Alert, CN II-XII Intact, Oriented x3 - Skin Skin Exam: Dry, Warm Assessment and Plan - Assessment and Plan (Free Text) Assessment: 28 year old male with a PMH of HIV on ART with questionable compliance and asthma who presented to [facility] with concerns of perirectal pain and swelling. Infectious disease consultation was requested for possible abscess. Plan: Sepsis with tachycardia and leukocytosis likely from right upper thigh/lower glute abscess HIV on HAART with questionable compliance S/p I&D POD#2 Ok to DC on avalox and acyclovir BCx 2/2 negative day 2 Wound cultures reviewed RPR negative but FTA positive, discussed with primary team who will reach out to him to educate him to follow up with his ID doctor Will follow with you Patient was seen and examined and case will be discussed with attending veronica driver Thank you for the pleasure participating in the care of this interesting patient <Michael Hinton - Last Filed: 02/08/19 17:24> Objective - Vital Signs/Intake and Output Vital Signs (last 24 hours): Temp Pulse Resp BP Pulse Ox 98 F 75 20 152/93 H 99 02/08/19 06:00 02/08/19 06:00 02/08/19 06:00 02/08/19 06:00 02/08/19 06:00 Intake and Output: 02/08/19 02/08/19 06:59 18:59 Intake Total 620 Balance 620 - Labs Labs: 02/08/19 07:00 02/08/19 07:00 Attending/Attestation - Attestation I have personally seen and examined this patient.: Yes I have fully participated in the care of the patient.: Yes I have reviewed all pertinent clinical information, including history, physical exam and plan: Yes
[2019-02-09 11:57] LABS: % CD4 (T HELPER CELL) 38 Percent (30-61); % CD8 (SUPPRESSOR T CELL) 36 Percent (12-42); ABSOLUTE CD4 CELLS 620 Cells/mcL (490-1740); ABSOLUTE CD8 CELLS 591 Cells/mcL (180-1170); ABSOLUTE LYMPHOCYTES 1624 Cells/mcL (850-3900); HELPER/SUPPRESSOR RATIO 1.05 Ratio (0.86-5.00)
== END 2019-02-08 16:45 | disposition home or self-care (01) ==
LOC: ED 21:54 → ERH 02-06 02:27 → 5RSO 02-06 04:03
PROVIDERS: ADMIT Internal Medicine; ATTEND Internal Medicine
DX: A41.9 Sepsis, unspecified organism (principal); K61.2 Anorectal abscess; B20 Human immunodeficiency virus [HIV] disease; J45.909 Unspecified asthma, uncomplicated; Z91.14 Patient's other noncompliance with medication regimen; Z91.19 Patient's noncompliance with other medical treatment and regimen; F17.210 Nicotine dependence, cigarettes, uncomplicated; F12.90 Cannabis use, unspecified, uncomplicated
CPT/HCPCS: 36415; 46050; 72193; 80053; 80061; 81001; 83735; 84100; 85025; 86360; 86592; 86780; 87040; 87070; 87536; 99283; G0378; G0480; J0133; J2185; J2270; J7030; Q9967